=== PATIENT | male | born 1990 | race Two or more races ===

== ENCOUNTER 2020-05-09 09:40 | Outpatient (REF) | payer MEDICAID, SELFPAY | END 2020-05-09 09:41 | disposition home or self-care (01) | LOC: HO.LAB 09:40 | PROVIDERS: Visit Provider Internal Medicine | DX: Z20.828 Contact with and (suspected) exposure to other viral communicable diseases (principal) | CPT/HCPCS: C9803; U0003 ==

== ENCOUNTER 2022-01-26 13:12 | Outpatient (REF) | payer MEDICAID, SELFPAY ==
[2022-01-28 13:15] LABS: H Pylori Breath Test Negative (Negative)
== END 2022-01-26 13:13 | disposition home or self-care (01) ==
LOC: HO.LNP 13:12
PROVIDERS: PCP Family Medicine; Visit Provider Physician Assistant Surgical
DX: E66.01 Morbid (severe) obesity due to excess calories (principal)
CPT/HCPCS: 83013; 99202; 99211

== ENCOUNTER 2022-01-28 11:54 | Outpatient (REF) | payer MEDICAID, SELFPAY ==
--- NOTE | ~2022-01-28 | XR_ITS ---
EXAMINATION: XR CHEST CLINICAL INFORMATION: Morbid obesity. COMPARISON: None TECHNIQUE: 2 views of the chest were obtained. FINDINGS: No significant abnormality is noted involving the heart, lungs, mediastinum, bony thorax or soft tissues. XR/XR chest 2V IMPRESSION: Unremarkable examination.
--- NOTE | 2022-01-28 12:03 | ECG_ITS ---
Test Reason : e66.01 Blood Pressure : / mmHG Vent. Rate : 064 BPM Atrial Rate : 064 BPM P-R Int : 148 ms QRS Dur : 100 ms QT Int : 430 ms P-R-T Axes : 028 026 038 degrees QTc Int : 443 ms Normal sinus rhythm Normal ECG No previous ECGs available Referred By: Grupo James Electronically Signed By:USAMA MCMAHON MD
[2022-01-28 12:42] LABS: MANUAL DIFF FLAG NO
[2022-01-28 13:20] LABS: Estimated Average Glucose 105 mg/dL; Hemoglobin A1c % 5.3 %
[2022-01-28 13:22] LABS: Basophils Percent Auto 0.7 % (0-2); Eosinophils Absolute Auto 0.2 X10*3/uL (0.0-0.4); Eosinophils Percent Auto 3.2 % (0-4); Hematocrit 42.1 % (42.0-52.0); Hemoglobin 14.3 g/dl (14.0-18.0); Imm Gran Abs Auto 0.01 X10*3/uL (0.00-0.03); Imm Gran Pct Auto 0.2 % (0.0-0.4); Lymphocytes Absolute Auto 1.9 X10*3/uL (1.2-4.9); Lymphocytes Percent Auto 33.8 % (20-40); Mean Corpuscular Volume 88.3 fL (80.0-98.0); Mean Platelet Volume 11.1 fL (9.4-12.4); Monocytes Absolute Auto 0.6 X10*3/uL (0.1-1.2); Monocytes Percent Auto 11.2 % (2-11); Neutrophils Absolute Auto 2.8 x10*3/uL (2.0-8.3); Neutrophils Percent Auto 50.9 % (45-73); Platelet Count 192 X10*3/uL (160-400); Red Blood Count 4.77 X10*6/uL (4.60-5.80); Red Cell Distribution Width 12.2 % (11.0-16.0); White Blood Count 5.5 X10*3/uL (4.8-10.8)
[2022-01-28 13:41] LABS: Alanine Aminotransferase 50 U/L (0-40); Albumin Level 4.7 g/dL (3.5-5.0); Alkaline Phosphatase 63 U/L (39-117); Anion Gap 13 (12-20); Aspartate Amino Transferase 32 U/L (5-37); Bilirubin Total 0.7 mg/dL (0.0-1.0); Blood Urea Nitrogen 12 mg/dL (9-16); C Reactive Protein 0.53 mg/dL (< or = 0.50); Calcium 9.6 mg/dL (8.4-10.2); Carbon Dioxide 25 mmol/L (22-29); Chloride 108 mmol/L (96-108); Cholesterol 196 mg/dL; Estimated Glomerular Filt Rate > 60; Glucose Random 93 mg/dL (60-115); HDL Cholesterol 53 mg/dL; Iron 113 mcg/dL (45-160); LDL Cholesterol Calculated 127 mg/dl; Percent Iron Saturation 36 % (15-50); Potassium 4.3 mmol/L (3.3-5.1); Sodium 142 mmol/L (135-145); Total Iron Binding Capacity 312 mcg/dL (228-428); Total Protein 7.4 g/dL (6.5-8.0); Triglycerides 84 mg/dL; Unsaturated Iron Binding 199 ug/dL
[2022-01-28 13:54] LABS: ~HepC Num1 0.05 S/CO (0.00-0.79); ~Hepatitis C Antibody Nonreactive (Nonreactive)
[2022-01-28 13:56] LABS: HBsAGNum1 0.24 S/CO (0.00-0.99); HIV AB/AG Nonreactive (Nonreactive); Hepatitis B Surface Antigen Negative (Negative)
[2022-01-28 14:07] LABS: Ferritin 226 ng/mL (20-250); Insulin 16 uU/mL (2-29); TSH reflex Free T4 3.25 uIU/mL (0.32-4.0); Vitamin D 25-OH Total 19.5 ng/mL (>30)
[2022-01-28 14:44] LABS: Folate 16.5 ng/mL (> or = 4.0); Vitamin B12 350 pg/mL (200-900)
[2022-01-29 08:11] LABS: Syphilis Screen Nonreactive (Nonreactive)
[2022-02-01 17:32] LABS: Calcium (PTHI) 9.8 mg/dL (8.6-10.3); PTHI 53 pg/mL (16-77)
[2022-02-01 21:52] LABS: Zinc 87 mcg/dL (60-130)
[2022-02-02 17:02] LABS: TS Negative Control Passed; TS Panel A 0; TS Panel B 0; TS Positive Control Passed; TSpotTB Negative (Negative)
[2022-02-04 00:43] LABS: Vitamin A 44 mcg/dL (38-98)
[2022-02-04 06:22] LABS: Vitamin B1 13 nmol/L (8-30)
== END 2022-01-28 11:55 | disposition home or self-care (01) ==
LOC: HO.LAB 11:54
PROVIDERS: Absent Provider Family Medicine; PCP Family Medicine; Visit Provider Physician Assistant Surgical
DX: Z11.4 Encounter for screening for human immunodeficiency virus [HIV] (principal); Z11.3 Encounter for screening for infections with a predominantly sexual mode of transmission; E66.01 Morbid (severe) obesity due to excess calories
CPT/HCPCS: 36415; 71046; 80053; 80061; 82306; 82607; 82728; 82746; 83036; 83525; 83540; 83970; 84425; 84443; 84590; 84630; 85025; 86140; 86481; 86780; 86803; 87340; 87389; 93005

== ENCOUNTER → 2022-02-23 10:49 | Outpatient (BNVA) | payer MEDICAID, SELFPAY | PROVIDERS: PCP Family Medicine; Referring Provider Family Medicine; Visit Provider Physician Assistant Surgical | DX: E66.01 Morbid (severe) obesity due to excess calories (principal); Z71.3 Dietary counseling and surveillance; Z68.41 Body mass index [BMI] 40.0-44.9, adult | CPT/HCPCS: 99212 ==

== ENCOUNTER → 2022-03-11 13:27 | Outpatient (BNVA) | payer MEDICAID, SELFPAY | PROVIDERS: PCP Family Medicine; Visit Provider Dietitian, Registered | DX: E66.01 Morbid (severe) obesity due to excess calories (principal) | CPT/HCPCS: 97802 ==

== ENCOUNTER → 2022-11-09 10:04 | Outpatient (BNVA) | payer MEDICAID, SELFPAY | PROVIDERS: PCP Family Medicine; Referring Provider Family Medicine; Visit Provider Physician Assistant Surgical ==

== ENCOUNTER → 2022-11-25 09:47 | Outpatient (BNVA) | payer MEDICAID, SELFPAY | PROVIDERS: PCP Family Medicine; Referring Provider Family Medicine; Visit Provider Physician Assistant Surgical | DX: E66.01 Morbid (severe) obesity due to excess calories (principal); Z68.41 Body mass index [BMI] 40.0-44.9, adult | CPT/HCPCS: 99212 ==

== ENCOUNTER 2023-01-13 10:52 | Outpatient (REF) | payer MEDICAID, SELFPAY ==
[2023-01-13 11:10] LABS: MANUAL DIFF FLAG NO
[2023-01-13 12:27] LABS: Basophils Absolute Auto 0.1 X10*3/uL (0.0-0.2); Basophils Percent Auto 0.8 % (0-2); Eosinophils Absolute Auto 0.2 X10*3/uL (0.0-0.4); Eosinophils Percent Auto 2.7 % (0-4); Hematocrit 43.6 % (42.0-52.0); Hemoglobin 14.3 g/dl (14.0-18.0); Imm Gran Abs Auto 0.01 X10*3/uL (0.00-0.03); Imm Gran Pct Auto 0.1 % (0.0-0.4); Lymphocytes Absolute Auto 3.3 X10*3/uL (1.2-4.9); Lymphocytes Percent Auto 42.5 % (20-40); Mean Corpuscular HGB Conc 32.8 g/dl (31.0-36.0); Mean Corpuscular Hemoglobin 29.3 pg (27.0-33.0); Mean Corpuscular Volume 89.3 fL (80.0-98.0); Mean Platelet Volume 10.8 fL (9.4-12.4); Monocytes Absolute Auto 0.6 X10*3/uL (0.1-1.2); Monocytes Percent Auto 7.7 % (2-11); Neutrophils Absolute Auto 3.6 x10*3/uL (2.0-8.3); Neutrophils Percent Auto 46.2 % (45-73); Platelet Count 220 X10*3/uL (160-400); Red Blood Count 4.88 X10*6/uL (4.60-5.80); Red Cell Distribution Width 12.5 % (11.0-16.0); White Blood Count 7.8 X10*3/uL (4.8-10.8)
[2023-01-13 14:16] LABS: Estimated Average Glucose 100 mg/dL; Hemoglobin A1c % 5.1 %
[2023-01-13 14:25] LABS: Alanine Aminotransferase 34 U/L (0-40); Albumin Level 4.3 g/dL (3.5-5.0); Alkaline Phosphatase 60 U/L (39-117); Anion Gap 14 (12-20); Aspartate Amino Transferase 19 U/L (5-37); Bilirubin Total 0.6 mg/dL (0.0-1.0); Blood Urea Nitrogen 13 mg/dL (9-16); C Reactive Protein 0.61 mg/dL (< or = 0.50); Carbon Dioxide 26 mmol/L (22-29); Chloride 104 mmol/L (96-108); Cholesterol 194 mg/dL; Estimated Glomerular Filt Rate > 60; Ferritin 190 ng/mL (20-250); Glucose Random 91 mg/dL (60-115); HDL Cholesterol 47 mg/dL; Insulin 18 uU/mL (2-29); Iron 114 mcg/dL (45-160); LDL Cholesterol Calculated 124 mg/dl; Percent Iron Saturation 41 % (15-50); Potassium 4.1 mmol/L (3.3-5.1); Sodium 140 mmol/L (135-145); TSH reflex Free T4 2.67 uIU/mL (0.32-4.0); Total Iron Binding Capacity 277 mcg/dL (228-428); Total Protein 7.3 g/dL (6.5-8.0); Triglycerides 116 mg/dL; Unsaturated Iron Binding 163 ug/dL; Vitamin D 25-OH Total 21.9 ng/mL (>30)
[2023-01-13 15:46] LABS: Folate 11.5 ng/mL (> or = 4.0); Vitamin B12 339 pg/mL (200-900)
[2023-01-15 13:20] LABS: H Pylori Breath Test Negative (Negative)
[2023-01-17 14:58] LABS: Calcium (PTHI) 9.8 mg/dL (8.6-10.3); PTHI 45 pg/mL (16-77)
[2023-01-18 19:33] LABS: Zinc 80 mcg/dL (60-130)
[2023-01-20 03:33] LABS: Vitamin A 44 mcg/dL (38-98)
[2023-01-21 11:24] LABS: Vitamin B1 14 nmol/L (8-30)
== END 2023-01-13 10:53 | disposition home or self-care (01) ==
LOC: HO.LAB 10:52
PROVIDERS: PCP Family Medicine; Visit Provider Physician Assistant Surgical
DX: Z01.818 Encounter for other preprocedural examination (principal); Z11.2 Encounter for screening for other bacterial diseases; E66.01 Morbid (severe) obesity due to excess calories
CPT/HCPCS: 36415; 80053; 80061; 82306; 82607; 82728; 82746; 83013; 83036; 83525; 83540; 83970; 84425; 84443; 84590; 84630; 85025; 86140; 99211; 99214

== ENCOUNTER 2023-01-13 11:17 | Outpatient (AMB) | payer MEDICAID, SELFPAY ==
--- NOTE | 2023-01-13 11:23 | MHC.OFFVISWM ---
Intake VS Expanded 01/13/23 11:31 Height 5 ft 10 in Weight 280 lb 9.6 oz BMI 40.3 BP 138/73 Blood Pressure Location Rt brachial Blood Pressure Position Sitting Pulse 62 Pulse Source Pulse Oximeter Temp 97.3 F Temperature Source Temporal Artery Scan Pulse Oximetry 97 Oxygen Delivery Method Room Air Body Fat 105.2 Body Fat Percentage 37.5 Free Fat Mass 175.2 Muscle Mass 166.6 Visceral Mass 19.0 Water Mass 125.4 BMR 2,463 Intake Visit Reasons: (OV) SWL F/U & H.pylori Allergies No Known Allergies [No Known Allergies*] Allergy (Verified 01/13/23 11:27) Medication List - Last Reconciled 01/13/23 by DEMETRIUS Ladd No Known Home Meds HPI HPI Comments History of Present Illness Details The patient is a pleasant 32 year old male who returns to the clinic for pre-operative surgical weight loss management.?They were last seen in the office on 11/25/2022, recorded weight at that time was 281.6 pounds, with a BMI of 40.4.?Today's weight is 280.6 pounds and BMI is 40.2.?There has been a weight loss of 1 pounds since initiating the surgical weight loss program on 11/25/2022 with a total body weight loss of 0.3%. Pre op work up completed as follows: SWL classes:? 11/01 BH appts: none scheduled?? RD appts: none scheduled Labs: drawn today, pending H. pylori: done today CXR: 01/28/22, unremarkable exam EK01/28/22, NSR ABD U/S: next month UGI: next month The patient reports that he stopped the meal plan when he developed tendonitis in his leg, and had difficulty with exercise as well. Got frustrated. Does a lot of eating related to anxiety. Works in evenings, wants something to eat when he gets home. Sometimes does not sleep until 3-4am but tries to get to bed by 2am. Current meal plan includes: 2 Pure Protein shakes (1 scoop in 8oz 1% milk) at 11am-1pm, and 8pm-10pm 1 FitCrunch protein bar at 2pm-4pm Dinner at 5:30pm- 10 forks protein, 10 forks veg/salad PFSH Surgical History Hx of cholecystectomy Family History Mother Schizophrenia Father No problems noted. Son No problems noted. Son No problems noted. Daughter No problems noted. Social History Alcohol intake: never Patient Tobacco Use Status: Never used Tobacco Assessment & Plan Assessment & Plan (1) Morbid obesity: Code(s): E66.01 - Morbid (severe) obesity due to excess calories Plan Pt needs to be scheduled for RD and BH consults. Labs pending, H pylori pending, US/UGI scheduled for next month. Discussed the importance of adequate sleep. Provided exercise handout and highlighted Sit and Be Fit & Eunice Garcia videos as options for exercise while he is recovering from tendonitis. New meal plan: 2 Pure Protein shakes (1 scoop each, change milk to 8oz unsweetened almond milk) at 11am-1pm, and 8pm-10pm 2 FitCrunch protein bars at 2pm-4pm and 12-2am Dinner at 5:30pm- 10 forks protein, 10 forks veg/salad RTC 3 weeks. Patient is morbidly obese and is not considered stable at this time. I spent a total of 30 minutes reviewing/updating records, examining the patient and counseling the patient on weight management as detailed above. Coding Level of Care Code Est Pt Level 4 (16146) Diagnoses Morbid obesity E66.01
[2023-01-13 11:31] VITALS: BP 138/73; PULSE 62; TEMP 36.3; O2SAT 97; BMI 40.3
== END 2023-01-13 11:48 | disposition home or self-care (01) ==
PROVIDERS: PCP Family Medicine; Visit Provider Physician Assistant Surgical
DX: E66.01 Morbid (severe) obesity due to excess calories (principal)
CPT/HCPCS: 99214

== ENCOUNTER 2023-02-02 11:00 | Outpatient (AMB) | payer OTHER, SELFPAY ==
--- NOTE | 2023-02-02 11:15 | MHC.WMTHER ---
Intake Intake Visit Reasons: VIDEO BH Intake Allergies No Known Allergies [No Known Allergies*] Allergy (Verified 01/13/23 11:27) PFSH Surgical History Hx of cholecystectomy Family History Mother Schizophrenia Father No problems noted. Son No problems noted. Son No problems noted. Daughter No problems noted. Social History Alcohol intake: never Patient Tobacco Use Status: Never used Tobacco Behavioral Health Assessment Weight Management Therapy Therapy Notes Details PT is a 32 year old, , Romansh-speaking male who presents for initial behavioral health assessment as part of surgical weight-loss program. PT reports to be interested in bariatric surgery however, is unsure about what's his healthy weight. He also did not have a clear understanding of importance of follow meal plan and have changes in lifestyle prior to surgery. He disclosed struggles with stress-eating, and challenges with anxiety and depression however he denies ever been in formal mental health treatment and or past hospitalization/crisis for behavioral health. PT denies any safety concerns around SI and/or self-other harm. PHQ-9 scores showed active symptoms/concerns with depression. PT did not complete BES, wchih we will have to complete next appointment. At this time patient is not cleared from the behavioral health standpoint. We will meet again in 3-4 weeks. Presenting Concerns Referral Source WMP Provider, Pt sees Sangeetha. Reason for referral Completion of behavioral health assessment as part of process for weight-loss surgery. Precipitating Event Obesity. Living Situation Current Living Situation Rent At risk of losing current housing? No Satisfied with current living situation? Yes Comments PT lives with partner, 2 year old daughter and 3 step-shilcren. Food/Weight/Diet Expectations of change Pt states he wants to be at least 215Lbs. However, he's unsure about his healthy weight. He wants to get surgery to feel obligated to follow a meal plan and/or not to eat unhealthy foods. As well of to be forced to be healthy. History/Relationship with food PT reports he never had a schedule for meals, he tends to eat a lot of candy/sweets, he tends to skip breakfast/lunch and will have 1 meal at day but finds himself binging and snacking. Example of meals (what he had yesterday) Breakfast: Skip Lunch: 10pm/ not a formal lunch, might eat bread with tuna salad. Dinner: Skip/ yesterday had white rice/ beans/pork Gets home at 12am- might snack on sweets. Fall asleep 4am-wakes up 11am. Start working at 3pm. [place] to eat vegetables as an adult. History/Relationship with weight Pt reports he has always been overweight. However, it got out of control around age 25. History/Relationship with dieting Was at [facility] last year in 2021. [id number] he was very active with exercise, and was able to loss 60Lbs. - was 215Lbs. Binge Eating Do you frequently eat large amounts of food in short periods of time, not feeling physically hungry? No Do you feel out of control when you eat a large amount of food in a short period of time? No Do you eat large amounts of food rapidly and typically alone? No Night Eating Do you wake up at least once during the night to eat? No If you wake up in the night, do you find that it is necessary to eat something in order to fall back asleep? No Do you have little or no appetite in the morning and feel very hungry in the evening, often overeating between dinner and when you go to bed? 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 They live together and shares 1 daughter. Parents are alive, Pt has 4 siblings. Pt reports good family relationships. Parental/Familial log scaler obligations 2 older children from a previous relationship (8 and 9 years old). 1 year old daughter with current partner. 3 stepchildren. Developmental history and status None reported. Social support Partner. Community support None. Tenriism/Spirituality PT is Nondenominational, attends [employer] weekly. Cultural/Ethnic information PT was born in [place]. Moved to [place] in 2019. Legal Involvement and History Current or historical involvement with the legal system? Incarcelated in [id number] Education Highest grade completed 12th grade. Did 1 semester of college. Preferred learning style Written and Visual Currently enrolled in educational program? No Interested in further educational program? No Educational Interests/Skills None identified. 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 No Meaningful activities Reading the bible, family activities, watching tv. Financial Situation Describe current financial situation Often struggles with finance Financial assistance? None Service Service? No Mental Health and Addiction Treatment Current/Past substance abuse? 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 Current/Past addictive behavior concerns? No Psychiatric history -Never been in therapy or hospitalized for mental health. -Pt reports dealing with moments of depression and anxiety, and tends to eat a lot when stressed. -Has experienced traumatic events. Medical and Physical Health Summary Additional Medical History not covered in history None reported. Sexual History concerns None reported. Physical exam in the last year? Yes Pain Screening Current pain? Yes Pain in the last few months? Yes Comments Back pain. Medications Is the patient compliant with medications? No Does the patient have Acevedo Guardian in place? Not applicable Does the patient use complimentary health approaches? No Trauma/Abuse History History of trauma? Yes Other Past (Time in [facility], childhood experiences. ) Questionnaires PHQ-9 Over the last 2 weeks, how often have you been bothered by any of the following problems? 1. Little interest or pleasure in doing things: more than half the days 2. Feeling down, depressed, or hopeless: more than half the days 3. Trouble falling or staying asleep, or sleeping too much: several days 4. Feeling tired or having little energy: nearly every day 5. Poor appetite or overeating: more than half the days 6. Feeling bad about yourself - or that you are a failure or have let yourself or your family down: nearly every day 7. Trouble concentrating on things, such as reading the newspaper or watching television: nearly every day 8. Moving or speaking so slowly that other people could have noticed. Or the opposite - being so fidgety or restless that you have been moving around a lot more than usual: several days 9. Thoughts that you would be better off or of hurting yourself in some way: not at all Total score: 17 Depression Screening Interpretation: Positive [id number] - PHQ-9 Billing: Yes Source: Developed by Drs. Liu Morocho, Paloma Bradley, Shashi Major and colleagues, with an educational jona from [employer]. Assessment & Plan Assessment & Plan (1) Adjustment disorder: Code(s): F43.20 - Adjustment disorder, unspecified Qualifiers: Adjustment disorder type: with mixed anxiety and depressed mood Qualified Code(s): F43.23 - Adjustment disorder with mixed anxiety and depressed mood Plan: -PT will need support with emotional eating and managing symptoms of depression and anxiety. It has been recommended to start counseling and this provider will help with a referral. -We will also start working on habit building as PT is not following meal plan, healthy life choices and with emotional eating challenges by facilitating coping strategies for that. - Initial goal is for patient to set alarm for meals and follow suggested meal schedule/meal options. Advised to focus on small goals since surgery and achieve healthy weight are the big goals but initially we need to focus on small/clear objectives to reach that. Plan PT is not cleared. Telehealth Telehealth Location of provider rendering services: other (Home office. [place], [place].) Location of patient: address on file Patient Identification confirmed using: Name, : Yes Telehealth method: video Patient verbally consented to treatment: Yes Patient verbally consented to billing insurance company: Yes Patient informed of any privacy concerns related to visit: Yes Minutes spent on Phone/Video with Pt.: 60 Coding Level of Care Code New Pt Tele Psy Diag Lara ([id number]) Patient Type New Diagnoses Adjustment disorder F43.23 Adjustment disorder type: with mixed anxiety and depressed mood Time Spent (min) 70 Comment 11:15am-12:25pm
== END 2023-02-02 12:26 | disposition home or self-care (01) ==
LOC: HO.HBST 11:29
PROVIDERS: PCP Family Medicine; Visit Provider Counselor Mental Health
DX: F43.23 Adjustment disorder with mixed anxiety and depressed mood (principal)
CPT/HCPCS: 90791

== ENCOUNTER → 2023-02-02 11:00 | Outpatient (BNVA) | payer MEDICAID, SELFPAY | PROVIDERS: PCP Family Medicine; Visit Provider Counselor Mental Health ==

== ENCOUNTER 2024-05-25 19:06 | Emergency (ER) | payer MEDICAID, SELFPAY ==
--- NOTE | ~2024-05-25 | XR_ITS ---
EXAMINATION: XR CHEST CLINICAL INFORMATION: CP COMPARISON: Chest x-ray 01/28/2022 TECHNIQUE: 2 views of the chest were obtained. FINDINGS: No significant abnormality is noted involving the heart, lungs, mediastinum, bony thorax or soft tissues. XR/XR chest 2V IMPRESSION: Unremarkable examination. Electronically signed by: Jay Colvin MD 05/25/2024 08:46 PM [facility]
--- NOTE | 2024-05-25 19:07 | ECG_ITS ---
Test Reason : CP Blood Pressure : / mmHG Vent. Rate : 094 BPM Atrial Rate : 094 BPM P-R Int : 150 ms QRS Dur : 086 ms QT Int : 342 ms P-R-T Axes : 047 043 039 degrees QTc Int : 427 ms Normal sinus rhythm Normal ECG When compared with ECG of 28-JAN-2022 12:00, No significant change was found Referred By: Christina Lyon Electronically Signed By:DONTRELL KERN
[2024-05-25 19:26] VITALS: BP 144/86; PULSE 88; RESP 18; TEMP 36.6; O2SAT 96; BMI 40.4
--- NOTE | 2024-05-25 19:28 | ED.GENADULT ---
HPI - General Adult General Chief complaint: Chest Pain Stated complaint: Chest pain/ cough Time Seen by Provider: 05/25/24 23:18 Source: patient Mode of arrival: ambulatory Limitations: no limitations History of Present Illness ED Provider: HPI narrative: Patient has been having dry cough for last 3 weeks getting worse now having chest soreness been increases on deep breath or cough no fever no chills has mucopurulent phlegm Related Data Previous Rx's ?Medication ?Instructions ?Recorded cholecalciferol (vitamin D3) 50 50 mcg PO DAILY #90 caps 01/25/23 mcg (2,000 unit) capsule azithromycin 250 mg tablet See Rx Instructions PO .COMPLEX #6 05/25/24 (Zithromax Z-Diomedes) tabs benzonatate 200 mg capsule 200 mg PO TID PRN cough #30 caps 05/25/24 cefuroxime axetil 500 mg tablet 500 mg PO BID 7 days #14 tabs 05/25/24 Allergies Allergy/AdvReac Type Severity Reaction Status Date / Time No Known Allergies Allergy Verified 05/25/24 19:32 [No Known Allergies*] Review of Systems Review of Systems: Yes all other systems are reviewed and are negative [facility] Past Medical History Surgical History Hx of cholecystectomy Family History Family History Mother Schizophrenia Father No problems noted. Son No problems noted. Son No problems noted. Daughter No problems noted. Social History Social History Alcohol intake: never Patient Tobacco Use Status: Never used Tobacco Advance Directives: No Advance Directives Information Provided: Yes Physical Exam ED Vital Signs: Vital Signs - 24 hr 05/25/24 19:26 05/26/24 00:02 05/26/24 00:07 Temperature 97.9 F 97.8 F 97.8 F Pulse Rate 88 85 85 Respiratory Rate 18 17 17 Blood Pressure 144/86 H 134/85 134/85 Pulse Oximetry 96 96 96 Oxygen Delivery Method Room Air Room Air Room Air BMI result Body Mass Index 40.4 Appearance: Alert. Oriented X3. No acute distress. ENT: Pharynx normal. Oral Mucosa moist Neck: Normal inspection. Neck supple. CVS: Normal heart rate and rhythm. Pulses normal. Respiratory: No respiratory distress. Equal air entry bilateral, no wheezing/rales/rhonchi frequent cough chest wall tenderness Skin: Skin warm and dry. Normal skin color. Normal skin turgor. Extremities: No lower extremity edema. Neuro: Oriented X 3. Course Course Course Narrative: This is an RME: Additional HPI, ROS, PE not included below will be deferred to primary provider. RME assessment and note performed by: Christina Lyon PA-C This is a [id number]-male, with no known medical hx, who presents to the ER with complaints of cough, subjective fevers, chest pain x 3 weeks. Plan: Labs, CXR, EKG, viral swabs Medications Administered Discontinued Medications Generic Name Dose Route Start Last Admin Trade Name Freq PRN Reason Stop Dose Admin Cefuroxime Axetil 500 mg 05/25/24 23:51 05/26/24 00:03 Cefuroxime Axetil 500 Mg Tablet PO 05/25/24 23:52 500 mg ONCE ONE Administration Guaifenesin/Codeine Phosphate 10 ml 05/25/24 23:52 05/26/24 00:03 Guaifen/Codeine Sf 200/20/10ml 10 Ml Liquid PO 05/25/24 23:53 10 ml ONCE ONE Administration Medical Decision Making Medical Decision Making [facility] Narrative: Patient has acute bronchitis causing the chest pain chest x-ray negative will discharge him on antibiotics Lab Data [facility] Lab Attestation statement: I reviewed the patient's lab results. 05/25/24 19:46 05/25/24 19:46 Labs: Lab Results 05/25/24 05/25/24 Range/Units 19:46 22:56 WBC 10.0 (4.8-10.8) X10*3/uL RBC 4.62 (4.60-5.80) X10*6/uL Hgb 14.8 (14.0-18.0) g/dl Hct 42.4 (42.0-52.0) % MCV 91.8 (80.0-98.0) fL MCH 32.0 (27.0-33.0) pg MCHC 34.9 (31.0-36.0) g/dl RDW 13.0 (11.0-16.0) % Plt Count 314 D (160-400) X10*3/uL MPV 10.5 (9.4-12.4) fL Immature Gran % (Auto) 0.4 (0.0-0.4) % Neut % (Auto) 57.0 (45-73) % Lymph % (Auto) 31.1 (20-40) % [place] % (Auto) 7.7 (2-11) % Eos % (Auto) 3.2 (0-4) % Baso % (Auto) 0.6 (0-2) % Lymph # (Auto) 3.1 (1.2-4.9) X10*3/uL [place] # (Auto) 0.8 (0.1-1.2) X10*3/uL Eos # (Auto) 0.3 (0.0-0.4) X10*3/uL Baso # (Auto) 0.1 (0.0-0.2) X10*3/uL Abs Immat Gran (auto) 0.04 H (0.00-0.03) X10*3/uL Absolute Neuts (auto) 5.7 (2.0-8.3) x10*3/uL Absolute Nucleated RBC 0.000 (0.0-0.012) X10*3/uL Nucleated RBC % (auto) 0.0 (0.0-0.2) /100WBC PT 12.0 (10.9-12.4) SEC INR 1.0 (0.9-1.1) Sodium 139 (135-145) mmol/L Potassium 4.4 (3.3-5.1) mmol/L Chloride 104 (96-108) mmol/L Carbon Dioxide 26 (22-29) mmol/L Anion Gap 13 (12-20) BUN 13 (9-16) mg/dL Creatinine 1.17 (0.5-1.4) mg/dL Estim Creat Clear Calc 124.2 Estimated GFR > 60 Random Glucose 110 (60-115) mg/dL Calcium 9.9 (8.4-10.2) mg/dL Total Bilirubin 0.5 (0.0-1.0) mg/dL Direct Bilirubin 0.2 (0.0-0.5) mg/dL AST 41 H (5-37) U/L ALT 51 H (0-40) U/L Alkaline Phosphatase 93 (39-117) U/L Troponin I High Sens < 2.7 < 2.7 (<3.5-35.0) ng/L Total Protein 7.8 (6.5-8.0) g/dL Albumin 4.5 (3.5-5.0) g/dL Influenza Type A (PCR) NEGATIVE (Negative) Influenza Type B (PCR) NEGATIVE (Negative) RSV RNA Qual (PCR) NEGATIVE (Negative) SARS-CoV-2 RNA (RT-PCR) NEGATIVE (Negative) Independent Interpretation I performed an independent interpretation of an: EKG Interpretation: Normal sinus rhythm heart rate 94 beats per minute normal interval normal axis impression normal EKG Discharge Plan Discharge Clinical Impression: Acute bronchitis Patient Disposition: Home, Self-Care Instructions: Acute Bronchitis (ED) Additional Instructions: Take antibiotics and cough drops as prescribed Follow with PCP if not better Prescriptions: New benzonatate 200 mg capsule 200 mg PO TID PRN (Reason: cough) Qty: 30 0RF cefuroxime axetil 500 mg tablet 500 mg PO BID 7 Days Qty: 14 0RF azithromycin [Zithromax Z-Diomedes] 250 mg tablet See Rx Instructions .ROUTE .COMPLEX Qty: 6 0RF Rx Instructions: For 250 mg dose pack: take 500 mg today (day 1), then 250 mg for 4 days (days 2-5) No Action cholecalciferol (vitamin D3) 50 mcg (2,000 unit) capsule 50 mcg PO DAILY Qty: 90 3RF Interventions: ED Discharge Assessment Last Done: 05/26/24 00:07 Discharge Date/Time: 05/26/24 00:07 Print Language: Upper Sorbian
[2024-05-25 20:01] LABS: MANUAL DIFF FLAG NO
[2024-05-25 20:03] LABS: Basophils Absolute Auto 0.1 X10*3/uL (0.0-0.2); Basophils Percent Auto 0.6 % (0-2); Eosinophils Absolute Auto 0.3 X10*3/uL (0.0-0.4); Eosinophils Percent Auto 3.2 % (0-4); Hematocrit 42.4 % (42.0-52.0); Hemoglobin 14.8 g/dl (14.0-18.0); Imm Gran Abs Auto 0.04 X10*3/uL (0.00-0.03); Imm Gran Pct Auto 0.4 % (0.0-0.4); Lymphocytes Absolute Auto 3.1 X10*3/uL (1.2-4.9); Lymphocytes Percent Auto 31.1 % (20-40); Mean Corpuscular HGB Conc 34.9 g/dl (31.0-36.0); Mean Corpuscular Volume 91.8 fL (80.0-98.0); Mean Platelet Volume 10.5 fL (9.4-12.4); Monocytes Absolute Auto 0.8 X10*3/uL (0.1-1.2); Monocytes Percent Auto 7.7 % (2-11); Neutrophils Absolute Auto 5.7 x10*3/uL (2.0-8.3); Platelet Count 314 X10*3/uL (160-400); Red Blood Count 4.62 X10*6/uL (4.60-5.80)
[2024-05-25 20:29] LABS: Alanine Aminotransferase 51 U/L (0-40); Albumin Level 4.5 g/dL (3.5-5.0); Alkaline Phosphatase 93 U/L (39-117); Anion Gap 13 (12-20); Aspartate Amino Transferase 41 U/L (5-37); Bilirubin Direct 0.2 mg/dL (0.0-0.5); Bilirubin Total 0.5 mg/dL (0.0-1.0); Blood Urea Nitrogen 13 mg/dL (9-16); Calcium 9.9 mg/dL (8.4-10.2); Carbon Dioxide 26 mmol/L (22-29); Chloride 104 mmol/L (96-108); Creatinine Clr Calc Pharmacy 124.2; Estimated Glomerular Filt Rate > 60; Glucose Random 110 mg/dL (60-115); Potassium 4.4 mmol/L (3.3-5.1); Sodium 139 mmol/L (135-145); Total Protein 7.8 g/dL (6.5-8.0)
[2024-05-25 20:38] LABS: Troponin-I High Sensitivity < 2.7 ng/L (<3.5-35.0)
[2024-05-25 20:46] LABS: Influenza A PCR NEGATIVE (Negative); Influenza B PCR NEGATIVE (Negative); Resp Syncy Virus RNA Qual PCR NEGATIVE (Negative); SARS COV2 PCR INHOUSE NEGATIVE (Negative)
[2024-05-25 23:24] LABS: Troponin-I High Sensitivity < 2.7 ng/L (<3.5-35.0)
[2024-05-26 00:02] VITALS: BP 134/85; PULSE 85; RESP 17; TEMP 36.6; O2SAT 96
[2024-05-26] MEDS: guaiFEN/Codeine SF 200/20/10ML 10 ML LIQUID PO (00:03)
[2024-05-26] MEDS: cefuroxime axetiL 500 MG TABLET PO (00:03)
[2024-05-26 00:07] VITALS: BP 134/85; PULSE 85; RESP 17; TEMP 36.6; O2SAT 96
== END 2024-05-26 00:07 | disposition home or self-care (01) ==
LOC: HO.ED 23:59
PROVIDERS: Physician Assistant Medical; Emergency Provider Internal Medicine
DX: J40 Bronchitis, not specified as acute or chronic (principal); R07.89 Other chest pain; Z03.818 Encounter for observation for suspected exposure to other biological agents ruled out; Z79.899 Other long term (current) drug therapy
CPT/HCPCS: 0241U; 36415; 71046; 80048; 80076; 84484; 85025; 85610; 93005; 99283

== ENCOUNTER → 2024-05-25 19:07 | Outpatient (BNV) | payer MEDICAID, SELFPAY | PROVIDERS: Emergency Provider Internal Medicine; Visit Provider Internal Medicine | DX: R07.9 Chest pain, unspecified (principal) | CPT/HCPCS: 93010 ==

== ENCOUNTER 2024-07-04 06:17 | Emergency (ER) | payer MEDICAID, SELFPAY ==
--- NOTE | ~2024-07-04 | CT_ITS ---
EXAMINATION: CT ABDOMEN AND PELVIS WITHOUT CONTRAST CLINICAL INFORMATION: Epigastric pain. COMPARISON: None available. TECHNIQUE: Multidetector volumetric imaging was performed from the superior aspect of the liver through the pubic symphysis. Sagittal and coronal reformatted images were obtained on the technologist's workstation. This CT examination was performed using dose optimization techniques as appropriate, variously including the following: *Automated exposure control *Adjustment of mA and/or kV according to patient size (this includes techniques or standardized protocols for targeted exams where dose is matched to indication/reason for exam; i.e. extremities or head) *Use of iterative reconstruction technique. Total dose: 958 mGy centimeters FINDINGS: Inadequate evaluation of the intra-abdominal organs and vascular structures due to lack of IV contrast. LUNG BASES: Pulmonary groundglass, lower lung lobes. LIVER, GALLBLADDER, AND BILIARY TREE: Liver measures 20 cm. Decreased attenuation of the parenchyma. No intrahepatic biliary ductal dilatation. Status post cholecystectomy likely laparoscopic. No extrahepatic biliary ductal dilatation. PANCREAS: No peripancreatic fluid collections. No main pancreatic ductal dilatation. SPLEEN: 11 cm. ADRENAL GLANDS: No nodular lesions. KIDNEYS AND URETERS: Atrophic right kidney. No hydronephrosis or nephrolithiasis, left kidney. No hydronephrosis in the atrophic right kidney. BLADDER: Fluid-filled nearly collapsed with questionable wall thickening. GASTROINTESTINAL TRACT: Appendix is normal. Collapsed appearance of the left hemicolon. No intestinal obstruction pattern. No pneumatosis intestinalis. No pneumoperitoneum. No ascites. ABDOMINAL WALL: Diastases abdominal rectus muscles with a small tiny fat-containing umbilical hernia. Fat-containing left inguinal hernia. LYMPH NODES: No specific prominent less than 1 cm lymph nodes, mesenteric and retroperitoneum. VASCULAR: No aneurysm, abdominal aorta. PELVIC VISCERA: The seminal vesicles demonstrated normal size. Prostate gland is either absent or small. OSSEOUS STRUCTURES: Spondylosis L4-5 and L5-S1. Grade 1 retrolisthesis L4-5 on a degenerative basis resulting in central spinal canal and bilateral neuroforamina stenosis. Bilateral neuroforamina stenosis at L5-S1. No acute fracture. No gross lytic or blastic lesions.. CT/CT abdomen pelvis wo IV con IMPRESSION: Hepatomegaly and steatosis. Atrophic right kidney. No nephrolithiasis. Small tiny fat-containing umbilical hernia and fat-containing left inguinal hernia. Spondylosis L4-5 resulting in grade 1 retrolisthesis. Fleischner guidelines were followed. Electronically signed by: Milton Gaytan MD 07/04/2024 11:09 AM [facility]ENSON
[2024-07-04 06:19] VITALS: BP 153/82; PULSE 100; RESP 20; TEMP 36.6; O2SAT 96; BMI 41.2
--- NOTE | 2024-07-04 06:36 | PC.NURSE ---
Pt a&ox4, no signs of distress. Pt reports 9/10 abd pain with onset of 0100 with associated n/v/d Plan of care ongoing.
--- NOTE | 2024-07-04 06:55 | ED.NAVMDI ---
HPI - Nausea/Vomiting/Diarrhea General Chief complaint: Nausea/Vomiting/Diarrhea Stated complaint: n/v Time Seen by Provider: 07/04/24 06:39 Source: patient and newspaper inserter (yakut) Mode of arrival: ambulatory Limitations: language barrier (yakut) History of Present Illness ED Provider: XENIA SO PA-C HPI Narrative: 34 year old male presents to the ED today for evaluation of epigastric abdominal pain, N/V/D since 0100 this morning. Pain is localized to his epigastric region, no radiation. Describes it as a cramping sensation. Admits to multiple episodes of vomiting and diarrhea. No blood in stool/ vomit. He last ate around 1500 yesterday. This meal consisted of crazy loaded fries with chicken from a food truck. He is unsure if anyone else has similar symptoms. No hx of similar. Denies fever, chills, sore throat, flank pain, dysuria, hematuria. Surgical history - cholecystectomy (8 years ago). Related Data Previous Rx's ?Medication ?Instructions ?Recorded cholecalciferol (vitamin D3) 50 50 mcg PO DAILY #90 caps 01/25/23 mcg (2,000 unit) capsule azithromycin 250 mg tablet See Rx Instructions PO .COMPLEX #6 05/25/24 (Zithromax Z-Diomedes) tabs benzonatate 200 mg capsule 200 mg PO TID PRN cough #30 caps 05/25/24 cefuroxime axetil 500 mg tablet 500 mg PO BID 7 days #14 tabs 05/25/24 dicyclomine 10 mg capsule 10 mg PO BID PRN abdominal pain 07/04/24 #10 caps ondansetron 4 mg disintegrating 4 mg PO DAILY PRN nausea and 07/04/24 tablet vomiting 5 days #14 tabs Allergies Allergy/AdvReac Type Severity Reaction Status Date / Time No Known Allergies Allergy Verified 07/04/24 06:25 [No Known Allergies*] Review of Systems Review of Systems: Constitutional: No fever, chills, fatigue, night sweats, weight changes ENT/Mouth: No ear pain, hearing loss, nasal congestion, sinus pain, rhinorrhea, sore throat Eyes: No eye pain, swelling, redness, vision changes, discharge Cardio: No chest pain, palpitations, LUCAS, orthopnea, peripheral edema Pulm: No SOB, cough, sputum, wheezing, dyspnea, hemoptysis GI: Nohematemesis, constipation, hematochezia, melena, +abdominal pain, +nausea, +vomiting, +diarrhea : No irregular bleeding, dysuria, frequency, urgency, hesitancy, hematuria, flank pain, urinary flow changes, urinary incontinence or retention MSK: No back pain, neck pain, joint pain, myalgias Skin: No lesions, rashes Neuro: No weakness, numbness, paresthesias, LOC, dizziness, headache Psych: No anxiety/panic, depression, SI/HI, AH/VH All other systems reviewed and are negative. [facility] Past Medical History Attestation statement: The following information was validated with the patient. Source: old records reviewed and nursing notes reviewed Surgical History Hx of cholecystectomy Family History Family History Mother Schizophrenia Father No problems noted. Son No problems noted. Son No problems noted. Daughter No problems noted. Social History Social History Alcohol intake: never Patient Tobacco Use Status: Never used Tobacco Physical Exam Vital Signs: Vital Signs: Last Vital Signs Temp 99.3 F 07/04/24 12:21 Pulse 91 07/04/24 12:21 Resp 17 07/04/24 12:21 BP 129/84 07/04/24 12:21 Pulse Ox 96 07/04/24 12:21 O2 Del Method Room Air 07/04/24 12:21 BMI result Body Mass Index 41.2 Vital signs stable, afebrile General: Well appearing, in no acute distress. Skin: Warm, dry, intact. No rashes or lesions. Head: Normocephalic, atraumatic. EENT: Hearing is intact b/l. Conjunctiva clear. PERRLA. EOM intact. Moist mucous membranes.? Neck: Supple without LAD Cardiac: Chest wall symmetric. RRR Lungs: Normal respiratory effort without accessory muscle use. CTA bilaterally Abdomen: Obese, soft, nondistended, tender to palpation of epigastric region on deep palpation, no rebound tenderness or guarding. Normoactive bowel sounds x4. No CVAT bilaterally. Back: No midline spinous or paraspinal tenderness. No step off deformity. Ext: Upper and lower extremities atraumatic, without tenderness, deformity, swelling or erythema. Full ROM throughout Neuro: AOx3. Normal speech. Ambulating with steady gait. Psych: Appropriate mood and affect. Responds appropriately to questions. Course Course Course Narrative: - CBC without leukocytosis. Left shift. No anemia. H&H stable. Chemistry without acute electrolyte abnormality requiring intervention. Random glucose 138. No ERIKA. Liver function WNL. Lipase WNL. He tested negative for COVID, flu, RSV, strep throat. urine negative for infection. CT abdomen/pelvis pending. He has received Toradol and Zofran with improvement. - CT A/P showing normal pancreas. incidental findings of hepatic steatosis. no evidence of renal stones. likely gastroenteritis. educated on symptomatic treatment. tolerating crackers and gingerale in ED. n ofurther episodes of vomiting. Patient has remained stable throughout ED visit today. Discussed worrisome signs and symptoms and when to return to the ED. All questions answered at this time. Patient is agreeable with disposition and stable for discharge. Medications Administered Discontinued Medications Generic Name Dose Route Start Last Admin Trade Name Freq PRN Reason Stop Dose Admin Ketorolac Tromethamine 30 mg 07/04/24 07:41 07/04/24 08:52 Ketorolac Tromethamine 30 Mg/Ml Vial IM 07/04/24 07:42 30 mg ONCE ONE Administration Ondansetron HCl 4 mg 07/04/24 07:41 07/04/24 08:52 Ondansetron Odt 4 Mg Tab.Rapdis TRANSLINGU 07/04/24 07:42 4 mg ONCE ONE Administration Medical Decision Making Medical Decision Making [facility] Narrative: 34 year old male presents to the ED today for evaluation of epigastric abdominal pain, N/V/D since 0100 this morning. Patient was hypertensive, vitals are otherwise WNL. Afebrile. He is nontoxic-appearing and in no acute distress. Abdomen is obese, nondistended, tender to palpation of the epigastric region with deep palpation. No rebound tenderness or guarding. Negative Laughlin's sign. Negative McBurney point tenderness. Negative Rovsing sign. No CVAT bilaterally. Differential diagnosis includes viral syndrome, gastroenteritis. Abdominal exam without peritoneal signs. No evidence of acute abdomen at this time. Well appearing. Moderate suspicion for acute hepatobiliary disease (including acute cholecystitis- s/p cholecystectomy). Less likely to represent acute pancreatitis, PUD (including perforation), acute infectious processes (pneumonia, hepatitis, pyelonephritis), atypical appendicitis, vascular catastrophe, bowel obstruction or viscus perforation. Presentation not consistent with other acute, emergent causes of abdominal pain at this time. Plan: labs, UA, pain control, RUQ US, serial reassessment Differential Diagnosis Differential Diagnoses: The differential diagnosis associated with the presentation includes as above. Admission/Observation Not indicated Lab Data MDM Lab Attestation statement: I reviewed the patient's lab results. As above 07/04/24 06:45 07/04/24 06:45 Labs: Lab Results 07/04/24 07/04/24 Range/Units 06:45 08:30 WBC 10.2 (4.8-10.8) X10*3/uL RBC 5.15 (4.60-5.80) X10*6/uL Hgb 15.7 (14.0-18.0) g/dl Hct 44.7 (42.0-52.0) % MCV 86.8 (80.0-98.0) fL MCH 30.5 (27.0-33.0) pg MCHC 35.1 (31.0-36.0) g/dl RDW 12.1 (11.0-16.0) % Plt Count 207 D (160-400) X10*3/uL MPV 10.4 (9.4-12.4) fL Immature Gran % (Auto) 0.5 H (0.0-0.4) % Neut % (Auto) 89.8 H (45-73) % Lymph % (Auto) 4.8 L (20-40) % [place] % (Auto) 2.7 (2-11) % Eos % (Auto) 1.9 (0-4) % Baso % (Auto) 0.3 (0-2) % Lymph # (Auto) 0.5 L (1.2-4.9) X10*3/uL [place] # (Auto) 0.3 (0.1-1.2) X10*3/uL Eos # (Auto) 0.2 (0.0-0.4) X10*3/uL Baso # (Auto) 0.0 (0.0-0.2) X10*3/uL Abs Immat Gran (auto) 0.05 H (0.00-0.03) X10*3/uL Absolute Neuts (auto) 9.2 H (2.0-8.3) x10*3/uL Absolute Nucleated RBC 0.000 (0.0-0.012) X10*3/uL Nucleated RBC % (auto) 0.0 (0.0-0.2) /100WBC Sodium 140 (135-145) mmol/L Potassium 4.2 (3.3-5.1) mmol/L Chloride 107 (96-108) mmol/L Carbon Dioxide 21 L (22-29) mmol/L Anion Gap 16 (12-20) BUN 17 H (9-16) mg/dL Creatinine 1.10 (0.5-1.4) mg/dL Estim Creat Clear Calc 137.4 Estimated GFR > 60 Random Glucose 138 H (60-115) mg/dL Calcium 9.4 (8.4-10.2) mg/dL Total Bilirubin 0.6 (0.0-1.0) mg/dL AST 31 (5-37) U/L ALT 58 H (0-40) U/L Alkaline Phosphatase 84 (39-117) U/L Total Protein 7.8 (6.5-8.0) g/dL Albumin 4.4 (3.5-5.0) g/dL Lipase 15 (8-78) U/L Influenza Type A (PCR) NEGATIVE (Negative) Influenza Type B (PCR) NEGATIVE (Negative) RSV RNA Qual (PCR) NEGATIVE (Negative) SARS-CoV-2 RNA (RT-PCR) NEGATIVE (Negative) S. pyogenes GrpA ELIECER Negative (Negative) Independent Interpretation I performed an independent interpretation of an: CT Scan Interpretation: CT a/p w/o bowel obstruction or wall thickening. Radiology Impression Discussion of test interpretation with radiology: I have reviewed the radiologist's reading. Radiologist Impression: Ordering Physician: Xenia So Date of Service: 07/04/24 Procedure(s): CT abdomen pelvis wo IV con Accession Number(s): [id number] cc: Physician,Unknown ; Xenia So~ Report Number: [id number]: Total DLP = 958.00 mGy-cm EXAMINATION: CT ABDOMEN AND PELVIS WITHOUT CONTRAST CLINICAL INFORMATION: Epigastric pain. COMPARISON: None available. TECHNIQUE: Multidetector volumetric imaging was performed from the superior aspect of the liver through the pubic symphysis. Sagittal and coronal reformatted images were obtained on the technologist's workstation. This CT examination was performed using dose optimization techniques as appropriate, variously including the following: *Automated exposure control *Adjustment of mA and/or kV according to patient size (this includes techniques or standardized protocols for targeted exams where dose is matched to indication/reason for exam; i.e. extremities or head) *Use of iterative reconstruction technique. Total dose: 958 mGy centimeters FINDINGS: Inadequate evaluation of the intra-abdominal organs and vascular structures due to lack of IV contrast. LUNG BASES: Pulmonary groundglass, lower lung lobes. LIVER, GALLBLADDER, AND BILIARY TREE: Liver measures 20 cm. Decreased attenuation of the parenchyma. No intrahepatic biliary ductal dilatation. Status post cholecystectomy likely laparoscopic. No extrahepatic biliary ductal dilatation. PANCREAS: No peripancreatic fluid collections. No main pancreatic ductal dilatation. SPLEEN: 11 cm. ADRENAL GLANDS: No nodular lesions. KIDNEYS AND URETERS: Atrophic right kidney. No hydronephrosis or nephrolithiasis, left kidney. No hydronephrosis in the atrophic right kidney. BLADDER: Fluid-filled nearly collapsed with questionable wall thickening. GASTROINTESTINAL TRACT: Appendix is normal. Collapsed appearance of the left hemicolon. No intestinal obstruction pattern. No pneumatosis intestinalis. No pneumoperitoneum. No ascites. ABDOMINAL WALL: Diastases abdominal rectus muscles with a small tiny fat-containing umbilical hernia. Fat-containing left inguinal hernia. LYMPH NODES: No specific prominent less than 1 cm lymph nodes, mesenteric and retroperitoneum. VASCULAR: No aneurysm, abdominal aorta. PELVIC VISCERA: The seminal vesicles demonstrated normal size. Prostate gland is either absent or small. OSSEOUS STRUCTURES: Spondylosis L4-5 and L5-S1. Grade 1 retrolisthesis L4-5 on a degenerative basis resulting in central spinal canal and bilateral neuroforamina stenosis. Bilateral neuroforamina stenosis at L5-S1. No acute fracture. No gross lytic or blastic lesions.. CT/CT abdomen pelvis wo IV con IMPRESSION: Hepatomegaly and steatosis. Atrophic right kidney. No nephrolithiasis. Small tiny fat-containing umbilical hernia and fat-containing left inguinal hernia. Spondylosis L4-5 resulting in grade 1 retrolisthesis. Fleischner guidelines were followed. Electronically signed by: Milton Gaytan MD 07/04/2024 11:09 AM EST External Record Review External record reviewed: Inpatient record Prescription Management I considered prescription management with: Pain Medication Social Determinants Patient?s care significantly limited by Social Determinants of Health including: Other Social Determinant of Health Critical Care Time Critical Care Time Critical Care Time: No Discharge Plan Discharge Clinical Impression: Gastroenteritis Patient Disposition: Home, Self-Care Instructions: Gastroenteritis (ED) Additional Instructions: Your lab workup today was reassuring.? You tested negative for covid, flu, rsv, and strep throat. Your urine test was negative for infection. The CT scan of your abdomen shows incidental findings of fatty liver and small fat containing umbilical hernia and fat containing left inguinal hernia. You may follow up with general surgery for this. You were provided with a referral. Call them to establish care. Your symptoms are most consistent with a viral stomach bug, also known as gastroenteritis.? The treatment for this is supportive care. Symptoms usually resolve on their own in 48-72 hours.? The recommendation is rest and lots of oral hydration.? For the next 24 hours, stick to a NATHALIA diet (bananas rice, applesauce, tea, and toast) Zofran is an anti-nausea medication. This has been sent to your pharmacy for you to take as needed for nausea.? You can also try over the counter Pepto Bismol or Imodium as needed for upset stomach and diarrhea.? Take bentyl as needed for abdominal pain/cramping. Follow up with your primary care provider this week. If you develop new or worsening symptoms call 911 or come back to the ER for further evaluation. Prescriptions: New dicyclomine 10 mg capsule 10 mg PO BID PRN (Reason: abdominal pain) Qty: 10 0RF ondansetron 4 mg tablet,disintegrating 4 mg PO DAILY PRN (Reason: nausea and vomiting) 5 Days Qty: 14 0RF No Action cholecalciferol (vitamin D3) 50 mcg (2,000 unit) capsule 50 mcg PO DAILY Qty: 90 3RF benzonatate 200 mg capsule 200 mg PO TID PRN (Reason: cough) Qty: 30 0RF cefuroxime axetil 500 mg tablet 500 mg PO BID 7 Days Qty: 14 0RF azithromycin [Zithromax Z-Diomedes] 250 mg tablet See Rx Instructions .ROUTE .COMPLEX Qty: 6 0RF Rx Instructions: For 250 mg dose pack: take 500 mg today (day 1), then 250 mg for 4 days (days 2-5) Referrals: [facility] [Provider Group] Stand Alone Forms: Work/School Release Interventions: ED Discharge Assessment Last Done: 07/04/24 12:21 Discharge Date/Time: 07/04/24 12:21 Print Language: Somali
[2024-07-04 06:56] LABS: MANUAL DIFF FLAG NO
[2024-07-04 06:57] LABS: Basophils Percent Auto 0.3 % (0-2); Eosinophils Absolute Auto 0.2 X10*3/uL (0.0-0.4); Eosinophils Percent Auto 1.9 % (0-4); Hematocrit 44.7 % (42.0-52.0); Hemoglobin 15.7 g/dl (14.0-18.0); Imm Gran Abs Auto 0.05 X10*3/uL (0.00-0.03); Imm Gran Pct Auto 0.5 % (0.0-0.4); Lymphocytes Absolute Auto 0.5 X10*3/uL (1.2-4.9); Lymphocytes Percent Auto 4.8 % (20-40); Mean Corpuscular HGB Conc 35.1 g/dl (31.0-36.0); Mean Corpuscular Hemoglobin 30.5 pg (27.0-33.0); Mean Corpuscular Volume 86.8 fL (80.0-98.0); Mean Platelet Volume 10.4 fL (9.4-12.4); Monocytes Absolute Auto 0.3 X10*3/uL (0.1-1.2); Monocytes Percent Auto 2.7 % (2-11); Neutrophils Absolute Auto 9.2 x10*3/uL (2.0-8.3); Neutrophils Percent Auto 89.8 % (45-73); Platelet Count 207 X10*3/uL (160-400); Red Blood Count 5.15 X10*6/uL (4.60-5.80); Red Cell Distribution Width 12.1 % (11.0-16.0); White Blood Count 10.2 X10*3/uL (4.8-10.8)
[2024-07-04 07:17] LABS: Alanine Aminotransferase 58 U/L (0-40); Albumin Level 4.4 g/dL (3.5-5.0); Alkaline Phosphatase 84 U/L (39-117); Anion Gap 16 (12-20); Aspartate Amino Transferase 31 U/L (5-37); Bilirubin Total 0.6 mg/dL (0.0-1.0); Blood Urea Nitrogen 17 mg/dL (9-16); Calcium 9.4 mg/dL (8.4-10.2); Carbon Dioxide 21 mmol/L (22-29); Chloride 107 mmol/L (96-108); Creatinine Clr Calc Pharmacy 137.4; Estimated Glomerular Filt Rate > 60; Glucose Random 138 mg/dL (60-115); Lipase 15 U/L (8-78); Potassium 4.2 mmol/L (3.3-5.1); Sodium 140 mmol/L (135-145); Total Protein 7.8 g/dL (6.5-8.0)
[2024-07-04 07:35] LABS: Influenza A PCR NEGATIVE (Negative); Influenza B PCR NEGATIVE (Negative); Resp Syncy Virus RNA Qual PCR NEGATIVE (Negative); SARS COV2 PCR INHOUSE NEGATIVE (Negative)
[2024-07-04 08:50] VITALS: BP 133/74; PULSE 97; RESP 18; TEMP 37.4; O2SAT 99
[2024-07-04] MEDS: Ondansetron ODT 4 MG TAB.RAPDIS TRANSLINGU (08:52)
[2024-07-04] MEDS: Ketorolac Tromethamine 30 MG/ML VIAL IM (08:52)
[2024-07-04 08:58] LABS: IDNOW Serial# 58CA691E; Strep A Nucleic Acid Negative (Negative)
[2024-07-04 10:55] VITALS: BP 129/84; PULSE 91; RESP 17; TEMP 37.4; O2SAT 96
[2024-07-04 12:21] VITALS: BP 129/84; PULSE 91; RESP 17; TEMP 37.4; O2SAT 96
== END 2024-07-04 12:21 | disposition home or self-care (01) ==
PROVIDERS: Physician Assistant Medical; Emergency Provider Student in an Organized Health Care Education/Training Program
DX: K52.9 Noninfective gastroenteritis and colitis, unspecified (principal); R11.2 Nausea with vomiting, unspecified; R10.13 Epigastric pain; R10.2 Pelvic and perineal pain; Z03.818 Encounter for observation for suspected exposure to other biological agents ruled out; Z79.899 Other long term (current) drug therapy
CPT/HCPCS: 0241U; 74176; 80053; 83690; 85025; 87651; 96372; 99284; J1885

== ENCOUNTER → 2024-07-04 07:41 | Outpatient (BNV) | payer MEDICAID, SELFPAY | PROVIDERS: Emergency Provider Student in an Organized Health Care Education/Training Program; Visit Provider Radiology Diagnostic Radiology | DX: R16.0 Hepatomegaly, not elsewhere classified (principal); K76.0 Fatty (change of) liver, not elsewhere classified; N26.1 Atrophy of kidney (terminal) | CPT/HCPCS: 74176 ==

== ENCOUNTER 2024-08-21 08:48 | Outpatient (AMB) | payer SELFPAY ==
--- NOTE | 2024-08-21 08:51 | MHC.OFFVIS ---
Intake Visit Reasons: Umbilical hernia/LIH~ ER 07-04-24 Intake Note: Patient referred after ED visit for Umbical and LIH. Not sure how long hernias been present. Patient c/o: no concerns. 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 He himself has no hernia symptoms. At the ER visit, he was diagnosed with gastroenteritis. He presents here for follow-up regarding the CT scan findings. The patient otherwise tolerating a diet. He has regular bowel habits. He does do strenuous activities and this placed of employment. 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 Chart was reviewed and patient evaluate [facility] Surgical History Hx of cholecystectomy Family History Mother Schizophrenia Father No problems noted. Son No problems noted. Son No problems noted. Daughter No problems noted. Social History Alcohol intake: never Patient Tobacco Use Status: Never used Tobacco Physical Exam GI Other: Patient was examined both supine and standing with Valsalva. Corpulent abdomen. Small reducible umbilical hernia roughly 1 cm in size. Right groin negative. Genitalia within normal limits. Small reducible left inguinal hernia. Assessment & Plan Assessment & Plan (1) Umbilical hernia: Code(s): K42.9 - Umbilical hernia without obstruction or gangrene Category: Surgical (2) Left inguinal hernia: Code(s): K40.90 - Unilateral inguinal hernia, without obstruction or gangrene, not specified as recurrent Category: Surgical Plan At present, these hernias or asymptomatic. My recommendation is to treat the patient conservatively. Should these increased in size or become symptomatic, patient instructed to contact the office for further evaluation/intervention. In the meantime, patient will otherwise follow-up p.r.n.. All questions answered. Coding Level of Care Code New Pt Level 4 (15846) Diagnoses Umbilical hernia K42.9 Left inguinal hernia K40.90
--- OUTSIDE RECORDS SUMMARY | 2024-08-21 09:28 | XMS_ITS | Encounter Summary ---
Author Organization [employer] Address [address] [place] [address] Care Team Providers Care Roll Mechanic Name Role Phone Daphne Villa MD Primary Care Provider [phone] Encounter Details Date Type Department Care Team (Latest Contact Info) Description 07/30/2024 Travel Social History Tobacco Use Types Packs/Day Years Used Date Smoking Tobacco: Never Passive Smoke Exposure: Never Smokeless Tobacco: Never Alcohol Use Standard Drinks/Week Comments Never 0 (1 standard drink = 0.6 oz pur e alcohol) Depression Answer Date Recorded Patient Health Questionnaire-9 Score 21 07/30/2024 Patient Health Questionnaire-9 Score 21 07/30/2024 Last PHQ-9: Questionnaire Data Not on file 0 07/30/2024 Housing Stability Answer Date Recorded What is your housing situation today? I have love taylor 05/02/[address] you li ve. Do you have problems with any of the following? None of the above 05/02/2023 Food Insecurity Answer Date Recorded Within the past 12 months, y ou worried that your food would run out before you got money to buy more: Never True 05/02/2023 Within the past 12 months,th e food you bought just didn't last and you didn't have enough money to get more: Never True 11/2022 Transportation Answer Date Recorded In the past 12 months, has l ack of transportation kept you from medical appts, meetings, work or from getting things needed for daily living? No 05/02/2023 Utilities Answer Date Recorded In the past 12 months, has t he electric, gas, oil or water company threatened to shut off services in your home? No 05/02/2023 Depression Answer Date Recorded Patient Health Questionnaire-2 Score 5 07/30/2024 Sex and Gender Information Value Date Recorded Sex Assigned at Male 04/26/2022 10:22 AM EDT Legal Sex Male 10:22 AM EDT Gender Identity Male 04/26/2022 10:22 AM EDT Sexual Orientation Choose not to disclose 2021 10:22 AM EDT documented as of this encounter Plan of Treatment Upcoming Encounters Date Type Department Care Team ([facility] st Contact Info) Description 09/20/2024 11:30 AM EDT Office Visit [facility] [address] [place] [address] Sunny Pacheco MD [address] [place] [address] documented as of this encounter Visit Diagnoses Not on filedocumented in this encounter Additional Health Concerns Assessment Noted Time PHQ-9 Depression Total Score: 21 025 1:25 PM EST documented as of this encounter Care Teams Roll Mechanic Relationship Specialty Start Date End Date Daphne Villa MD [address] [place] [id number] PCP - General Family Medicine 01/28/22 documented as of this encounter
--- OUTSIDE RECORDS SUMMARY | 2024-08-21 09:28 | XMS_ITS | Clinical Summary ---
Author Organization [facility] Address [address] [place] [address] Care Team Providers Care Oracle Business Intelligence Developer Name Role Phone Unavailable Primary Care Provider Unavailabl e Social History Tobacco Use Types Packs/Day Years Used Date Smoking Tobacco: Never Assessed Sex and Gender Information Value Date Recorded Sex Assigned at Not on file Legal Sex Male 4:33 AM EST Gender Identity Not on file Sexual Orientation Not on file Last Filed Vital Signs Vital Sign Reading Time Taken Comments Blood Pressure - - Pulse - - Temperature - - Respiratory Rate - - Oxygen Saturation - - Inhaled Oxygen Concentration - - Weight 129 kg (285 lb) 01/04/2023 2:36 PM EDT Height 182.9 cm (6') 01/04/2023 2:36 PM EDT Body Mass Index 38.65 01/04/2023 2:36 PM EDT Plan of Treatment Health Maintenance Due Date Last Done Comments DTaP,Tdap,and Td Vaccines (1 - Tdap) 2010 Hepatitis B Vaccines (1 of 3 - 19+ 3-dose series) 2010 Depression Screening 05/30/2022 HIV Screening 05/30/2022 Hepatitis C Screening 05/30/2022 Social Influencers of Health Screening 05/30/2022 COVID-19 Vaccine ( - 2023-2 5 season) 2024 Influenza Vaccine (#1) 2024 HIB Vaccines Aged Out No longer eligi ble based on patient's age to complete this topic HPV Vaccines Aged Out No longer eligi ble based on patient's age to complete this topic Hepatitis A Vaccines Aged Out No long er eligible based on patient's age to complete this topic IPV Vaccines Aged Out No longer eligi ble based on patient's age to complete this topic MMR Vaccines Aged Out No longer eligi ble based on patient's age to complete this topic Meningococcal ACWY Vaccine Aged Out N o longer eligible based on patient's age to complete this topic Meningococcal B Vacine Aged Out No lo nger eligible based on patient's age to complete this topic Pneumococcal Vaccine: Pediat rics (0 to 5 Years) and At-Risk Patients (6 to 64 Years) Aged Out No longer eligible b ased on patient's age to complete this topic RSV Immunization Patients Un traci 20 months Aged Out No longer eligible b ased on patient's age to complete this topic Varicella Vaccines Aged Out No longer eligible based on patient's age to complete this topic
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
--- OUTSIDE RECORDS SUMMARY | 2024-08-21 09:28 | XMS_ITS | Encounter Summary ---
Author Organization [employer] Address [address] [facility] 7[address] [place] [address] Care Team Providers Care Leather Toggler Name Role Phone Daphne Villa MD Primary Care Provider [phone] Reason for Visit * Reason Comments ER Follow-up Encounter Details Date Type Department Care Team (Latest Contact Info) Description 07/30/2024 1:15 PM EST Office Visit [facility] MED & PEDS [address] [place] [address] Sunny Pacheco MD [address] [place] [address] Gastroenteritis (Primary Dx); Mood disorder (CMS/HCC); Class 2 obesity due to excess calories without serious comorbidity with body mass index (BMI) of 38.0 to 38.9 in adult Social History Tobacco Use Types Packs/Day Years [...] AM EDT documented as of this encounter Last Filed Vital Signs Vital Sign Reading [...] Mass Index 41.3 07/30/2024 1:19 PM EST documented in this encounter Progress Notes * Sunny Pacheco MD - 07/30/2024 1:15 PM EST Subjective Patient ID: Dayo Ornelas is a 34 y.o. male who presents for ER Follow-up. ER Follow-up Pertinent negatives include no chills. Evaluated in the emergency department on July 04, 2024 for epigastric abdominal pain, nausea vomiting diarrhea. The pain was described as a cramping. Started after patient had a large meal made of rice with chicken for from a food truck. CBC without leukocytosis. Left shift. No anemia. H&H stable. Chemistry without acute electrolyte abnormality discharged with the impression of gastroenteritis chronic disease including, ondansetron. Patient has improved and has resumed his regular work. Now has 3 episodes of watery diarrhea instead of 8 as when the symptoms started. No fever or constitutional symptoms today. Mr. Dayo Ornelas is also complaining of feeling depressed and frustrated because of his weight and would like to try weight loss medication. Has history of pancreatitis, gallstones s/p cholecystectomy. Patient Active Problem List Diagnosis Chronic low back pain Obesity Elevated blood pressure reading Acute stress disorder Anxiety Mood disorder (CMS/HCC) Current Outpatient Medications on File Prior to Visit Medication Sig Dispense Refill acetaminophen (Tylenol 8 Hour) 650 MG ER tablet Take 1 tablet (650 mg) by mouth every 8 (eight) hours if needed for mild pain. 90 tablet 0 baclofen (Lioresal) 10 MG tablet TAKE 1 TABLET BY MOUTH THREE TIMES A DAY 90 tablet 0 Blood Pressure kit Use to monitor BP once a day and prn, please write down and bring to next appointment. Target < 140/90 mmHg. 1 kit 0 cholecalciferol (Vitamin D-3) 125 MCG (5000 UT) capsule Take by mouth in the morning. Diclofenac Sodium 1 % gel Apply 1 inch to affected area bid prn pain 100 g 0 escitalopram (Lexapro) 5 MG tablet Take 1 tablet (5 mg) by mouth Once per day. Take in the morning.30 tablet 0 hydrOXYzine pamoate (Vistaril) 25 MG capsule Take 1 capsule (25 mg) by mouth every 12 (twelve) hours if needed for anxiety (Pt. instructed to use medication as needed.). 60 capsule 0 pantoprazole (ProtoNix) 40 MG EC tablet Take 1 tablet by mouth 1 (one) time each day. QUEtiapine (SEROquel) 50 MG tablet Take 1 tablet (50 mg) by mouth at bedtime. 30 tablet 1 No current facility-administered medications on file prior to visit. No Known Allergies Review of Systems Constitutional: Negative for activity change, appetite change and chills. Eyes: Negative for pain, redness and itching. Genitourinary: Negative for enuresis, flank pain, frequency and genital sores. Objective BP 136/80 (BP Location: Right arm, Patient Position: Sitting, BP Cuff Size: Large adult) Pulse 70 Temp 97.4 ??F (36.3 ??C) (Oral) Resp 20 Ht 5' 11.65 (1.82 m) Wt 301 lb 9.6 oz (137 kg) SpO2 98% BMI 41.30 kg/m?? Physical Exam Constitutional: General: He is not in acute distress. Appearance: He is obese. He is not ill-appearing, toxic-appearing or diaphoretic. Cardiovascular: Rate and Rhythm: Normal rate. Pulmonary: Effort: Pulmonary effort is normal. Abdominal: Palpations: Abdomen is soft. Comments: Surgical scar. S/p cholecystectomy Neurological: General: No focal deficit present. Mental Status: He is alert. Assessment/Plan Diagnoses and all orders for this visit: Gastroenteritis Comments: Improving Push fluids with electrolytes Stool workup in 1 week if the symptoms are not completely resolved. Orders: - Ova and Parasites; Future - Stool - Gastrointestinal panel; Future Mood disorder (CMS/HCC) Comments: Already on care. Patient is very concerned because he has been unable to lose weight with a low-carb diet We will consider an antidepressant at the next visit Class 2 obesity due to excess calories without serious comorbidity with body mass index (BMI) of 38.0 to 38.9 in adult Comments: History of pancreatitis per pt GLP-1 receptor agonist contraindicated Some lifestyle modification recommended Orders: - Phentermine-Topiramate 3.75-23 MG capsule sustained-release 24 hr; 1 capsule daily documented in this encounter Plan of Treatment Upcoming Encounters Date Type Department Care Team ([facility] st Contact Info) Description 09/20/2024 11:30 AM EDT Office Visit [facility] MED & PEDS [address] [place] [address] Sunny Pacheco MD [address] [place] [address] Scheduled Orders Name Type Priority Associated Diagnoses Orde r Schedule Ova and Parasites Microbiology Routine Gastroenteritis Expected: 07/30/2024 (Approximate), Expires: 07/30/2025 Stool - Gastrointestinal panel Microbiology Routine Gastroenteritis Expected: 07/30/2024 (Approximate), Expires: 07/30/2025 documented as of this encounter Visit Diagnoses Diagnosis Gastroenteritis- Primary Other and unspecified noninfectious gastroenteritis and colitis Mood disorder (CMS/HCC) Unspecified episodic mood disorder Class 2 obesity due to excess calories without serious comorbidity with body mass index (BMI) of 38.0 to 38.9 in adult documented in this encounter Additional Health Concerns Assessment Noted Time PHQ-9 Depression Total Score: 21 025 1:25 PM EST documented as of this encounter Care Teams Leather Toggler Relationship Specialty Start Date End Date Daphne Villa MD [address] [place] [address] PCP - General Family Medicine 01/28/22 documented as of this encounter
== END 2024-08-21 09:05 | disposition home or self-care (01) ==
PROVIDERS: PCP Family Medicine; Visit Provider Surgery
DX: K42.9 Umbilical hernia without obstruction or gangrene (principal); K40.90 Unilateral inguinal hernia, without obstruction or gangrene, not specified as recurrent
CPT/HCPCS: 99204

== ENCOUNTER → 2024-08-21 08:48 | Outpatient (BNVA) | payer SELFPAY | PROVIDERS: PCP Family Medicine; Visit Provider Surgery | DX: K42.9 Umbilical hernia without obstruction or gangrene (principal); K40.90 Unilateral inguinal hernia, without obstruction or gangrene, not specified as recurrent | CPT/HCPCS: 99202 ==

== ENCOUNTER 2024-10-01 09:17 | Outpatient (AMB) | payer MEDICAID, SELFPAY ==
--- NOTE | 2024-10-01 09:22 | MHC.OFFVIS ---
Vital Signs 10/01/24 09:30 Height 6 ft Weight 287 lb BMI 38.9 BP 145/72 H Blood Pressure Location Rt brachial Position Sitting Pulse 72 Intake Visit Reasons: Re-discuss hernia surgery Intake Note: Patient called and scheduled today's appointment to re- discuss hernia surgery. Patient c/o: on and off abdominal pain on Lt groin area. States constant working and heavy lifting at work has made pain worse. Grain Operations Manager Required: Yes Accompanied by: Self / Same As Patient Allergies No Known Allergies [No Known Allergies*] Allergy (Verified 10/01/24 09:32) HPI Comments Details: Patient whom I know from the past who presents here with a symptomatic left inguinal hernia. He had a small hernia on initial evaluation. He has been quite active playing variety of sports and activities and has had marked left inguinal/groin discomfort and a bulge. He would like this to be repaired. He otherwise tolerating a diet. He has regular bowel habits. He does do strenuous activities at his place of employment Chart was reviewed and patient evaluated [facility] Surgical History Hx of cholecystectomy Family History Mother Schizophrenia Father No problems noted. Son No problems noted. Son No problems noted. Daughter No problems noted. Social History Alcohol intake: never Patient Tobacco Use Status: Never used Tobacco Physical Exam Vital Signs: Last Vital Signs Pulse 72 10/01/24 09:30 BP 145/72 H 10/01/24 09:30 BMI result Body Mass Index 38.9 Chest Other: Chest breath sounds bilaterally, HS 1 in 2 GI Other: Patient was examined both supine and standing with Valsalva. Moderately corpulent abdomen. Right groin negative. Genitalia within normal limits. Small asymptomatic reducible umbilical hernia. 1 cm in size. Patient was a small to medium sized reducible left inguinal hernia. Assessment & Plan Assessment & Plan (1) Left inguinal hernia: Code(s): K40.90 - Unilateral inguinal hernia, without obstruction or gangrene, not specified as recurrent Category: Surgical Plan Risks, benefits, and alternatives of open left inguinal hernia repair with mesh were reviewed with the patient and included but not limited to bleeding, infection, recurrence, numbness, pain, scarring the patient wished to proceed. All questions answered. Arrangements were made for this on a day which is convenient for him. Coding Level of Care Code Est Pt Level 5 (30487) Diagnoses Left inguinal hernia K40.90
[2024-10-01 09:30] VITALS: BP 145/72; PULSE 72; BMI 38.9
--- OUTSIDE RECORDS SUMMARY | 2024-10-01 10:21 | XMS_ITS | Clinical Summary ---
Author Organization [employer] [facility] Address [address] [place] [address] Care Team Providers Care Drag Car Racer Name Role Phone Unavailable Primary Care Provider [...] - 2023-2 5 season) 2024 Influenza Vaccine (Season Ended) 2025 HIB Vaccines Aged Out No longer eligi [...]
--- OUTSIDE RECORDS SUMMARY | 2024-10-01 10:21 | XMS_ITS | Clinical Summary ---
Author Organization [employer] Address [address] [facility] 7t [place] [address] Care Team Providers Care Deckhand Crab Boat Name Role Phone Daphne Villa MD Primary Care Provider [phone] Allergies No known active allergies Medications * [...] support. Provided information for CB program in [place]. Anxiety 04/13/2024 Assessment & Plan (04/20/2024 2:32 [...] support. Provided information for [facility] program in [place]. Assessment & Plan (04/13/2024 2:59 PM EDT): [...] case he changes his mind. Pt contacted PSYCHIATRIC programs last month and was told they [...] recommended reduction of 20-30% of maintenance calories; is/it project manager referral offered. Recommended to decrease soda and sugary beverage consumption. Recommended at least 20 g per meal of protein to assist with satiety. Recommended at least 150 min/week of moderate intensity exercise. Phentermine/topamax: 8/50 mg. Discussed side effects-> tachycardia, HTN, teratogenic, cognitive dysfuction, metabolic acidosis, constipation, dysgeusia. Denies hx of , hyperthyroidism, MAOI use or glaucoma. Denies hx of kidney stones. Encounters Date Type Department Care Team Description 09/20/2024 Travel 09/07/2024 Population Health Risk Score [facility] () Department [address] [place] [id number] Provider, Population Health Generic 07/30/2024 1:15 PM EST Office Visit [facility] MED & PEDS [address] [place] [address] Sunny Pacheco MD Gastroenteritis (Primary Dx); Mood disorder (CMS/HCC); Class 2 obesity due to excess calories without serious comorbidity with body mass index (BMI) of 38.0 to 38.9 in adult 07/30/2024 Travel 07/04/2024 Telephone [facility] MED & PEDS [address] [place] [address] Daphne Villa MD Hospital Follow-up from Last 3 Months Immunizations Name Administration [...] t he electric, gas, oil or water [employer] threatened to shut off services in your [...] Upcoming Encounters Date Type Department Care Team (Late st Contact Info) Description 10/01/2024 11:00 AM EDT Office Visit [facility] CHC MED & PEDS [address] [place] [address] Sunny Pacheco MD [address] [place] [address] Health Maintenance Due Date Last Done Comments [...] (01/13/2023 11:08 AM EDT) Triglycerides 116 mg/dL [facility] Comment:Desirable Triglyceri de: less than 150 mg/dLBorderline High Triglyceride 150-199 mg/dLHigh Triglyceride: 200-499 mg/dLVery High Triglyceride: greater than or equal to 5OO mg/dL Cholesterol 194 mg/dL [facility] Comment:Desirable Cholestero l: less than 200 mg/dLBorderline High Cholesterol: 200-239 mg/dLHigh Cholesterol: greater than 239 mg/dL LDL Cholesterol Calculated 124 mg/dl [facility] Comment:Desirable LDL: less than 100 mg/dLNear Optimal/Above Optimal LDL: 110- 129 mg/dLBorderline High LDL: 130-159 mg/dLHigh LDL: 160-189 mg/dLVery High LDL: greater than or equal to 190 mg/dL HDL Cholesterol 47 mg/dL [facility] Comment:Desirable HDL: great er than 40 mg/dL Note: This HDL assay may give artificially low results in patients with liver disease. 01/13/2023 11:0 8 AM EDT 01/13/2023 11:08 AM EDT us Generic External Data Provider LAB BLOOD ORDERAB LES Final Result [facility] [address] [place] [address] [phone] * HEPATITIS C ANTIBODY RFLX (01/28/2022 12:40 PM EDT) Hepatitis C Antibody Nonreactive Nonreactive [facility] Comment: Antibodies to HCV not detected; does not exclude early acute HCV infection. 01/28/2022 12:4 0 PM EDT us Daphne Villa MD HISTORICAL/NON ORDERABLE LABS Final Result [facility] [address] * HIV AB/AG (01/28/2022 12:40 PM EDT) HIV AB/AG Nonreactive Nonreactive [facility] Comment: HIV-1 p24 Ag and/or [...] detection of this assay. ?? The [employer] Claim Approver HIV Ag/Ab Combo assay result and supplemental assay results should be interpreted in conjunction with the patient's clinical presentation, history and other laboratory results. ??If the results are inconsistent with clinical evidence, additional testing is suggested to confirm the result. Hepatitis B Surface Antigen Negative Negative [facility] 01/28/2022 12:4 0 PM EDT us Daphne Villa MD HISTORICAL/NON ORDERABLE LABS Final Result [facility] [address] [place] [address], from Last 3 Months or Most Recently Relevant to Health Maintenance [email or web address] [employer] Care Teams Deckhand Crab Boat Relationship Specialty Start Date End Date Daphne Villa MD [address] [place] [address] PCP - General Family Medicine 01/28/22
== END 2024-10-01 09:39 | disposition home or self-care (01) ==
LOC: HO.HGS 09:17
PROVIDERS: PCP Family Medicine; Visit Provider Surgery
DX: K40.90 Unilateral inguinal hernia, without obstruction or gangrene, not specified as recurrent (principal)
CPT/HCPCS: 99214

== ENCOUNTER → 2024-10-01 09:17 | Outpatient (BNVA) | payer MEDICAID, SELFPAY | PROVIDERS: PCP Family Medicine; Visit Provider Surgery | DX: K40.90 Unilateral inguinal hernia, without obstruction or gangrene, not specified as recurrent (principal) | CPT/HCPCS: 99212 ==

== ENCOUNTER 2024-11-22 05:52 | Day surgery (SDC) | payer MEDICAID, SELFPAY ==
--- OUTSIDE RECORDS SUMMARY | 2024-11-06 15:27 | XMS_ITS | Clinical Summary ---
Author Organization [employer] Address [address] [facility] [address] [place] [address] Care Team Providers Care Supervisor Small Appliance Assembly Name Role Phone Daphne Villa MD Primary Care Provider Allergies No known active allergies Medications * [...] TIMES A DAY 90 tablet 4 Active phentermine 15 MG capsuleIndicatio ns:Class 3 severe obesity due to excess calories with serious comorbidity and body mass index (BMI) of 40.0 to 44.9 in adult Take 1 capsule (15 mg) by mouth before breakfast. 30 capsule 5 Active topiramate (Topamax) 25 MG tabletIndication s:Class 3 severe obesity due to excess calories with serious comorbidity and body mass index (BMI) of 40.0 to 44.9 in adult Take 1 tablet (25 mg) by mouth every 12 (twelve) hours. 30 tablet 1 5 10/02/19 26 Active Active Problems Problem Noted Date Diagnosed [...] support. Provided information for [facility]HC program in [place]. Anxiety 04/13/2024 Assessment & Plan (04/20/2024 2:32 [...] support. Provided information for [facility] program in [place]. Assessment & Plan (04/13/2024 2:59 PM EDT): [...] case he changes his mind. Pt contacted [facility] programs last month and was told they [...] will seek out for therapy services with N[facility]. Information given. clinician will provide additional assistance [...] recommended reduction of 20-30% of maintenance calories; band head saw operator referral offered. Recommended to decrease soda and [...] Encounters Date Type Department Care Team Description 10/01/2024 11:00 AM EDT Office Visit [facility] MED & PEDS [address] [place], [place] [id number] Sunny Pacheco MD Gastroenteritis (Primary Dx); Dietary counseling; Exercise counseling; Class 3 severe obesity due to excess calories with serious comorbidity and body mass index (BMI) of 40.0 to 44.9 in adult; Left inguinal hernia; Encounter for sterilization 10/01/2024 Travel 09/20/2024 Travel 09/07/2024 Population Health Risk Score [facility] () Department [address] [address] Provider, Population Health Generic from Last 3 Months Immunizations Name Administration [...] Sign Reading Time Taken Comments Blood Pressure 134/82 10/01/2024 11:22 AM EDT Pulse 82 10/01/2024 11:22 AM EDT Temperature 36.8 ??C (98.3 ??F) 10/01/2024 11:22 AM E DT Respiratory Rate 20 10/01/2024 11:22 AM EDT Oxygen Saturation 98% 07/30/2024 1:19 PM EST Inhaled Oxygen Concentration - - Weight 131 kg (288 lb 3.2 oz) 10/01/2024 11:22 A M EDT Height 180.3 cm (5' 11 ) 10/01/2024 11:22 AM EDT Body Mass Index 40.2 10/01/2024 11:22 AM EDT Plan of Treatment Upcoming Encounters Date Type Department Care Team (Late st Contact Info) Description 11/21/2024 3:30 PM EDT Office Visit [facility] CHC MED & PEDS [address] [place] [address] Sunny Pacheco MD [address] [place] [address] Health Maintenance Due Date Last Done Comments Family Planning (PISQ) 2006 Hepatitis B Vaccines (1 of 3 - 19+ 3-dose series) 2010 SDOH Screening 07/15/2023 07/15/2022 COVID-19 Vaccine (3 - 2023-2 5 season) 2024 08/08/2021, 06/13/2021 Depression Monitoring 01/27/2025 07/30/2024 , 07/30/2024 Alcohol/Substance Use Screening 07/30/2025 07/30/2024 Depression [...] (01/13/2023 11:08 AM EDT) Triglycerides 116 mg/dL [facility] Comment:Desirable Triglyceri de: less than 150 mg/dLBorderline High Triglyceride 150-199 mg/dLHigh Triglyceride: 200-499 mg/dLVery High Triglyceride: greater than or equal to 5OO mg/dL Cholesterol 194 mg/dL [facility] Comment:Desirable Cholestero l: less than 200 mg/dLBorderline High Cholesterol: 200-239 mg/dLHigh Cholesterol: greater than 239 mg/dL LDL Cholesterol Calculated 124 mg/dl [facility] Comment:Desirable LDL: less than 100 mg/dLNear Optimal/Above Optimal LDL: 110- 129 mg/dLBorderline High LDL: 130-159 mg/dLHigh LDL: 160-189 mg/dLVery High LDL: greater than or equal to 190 mg/dL HDL Cholesterol 47 mg/dL [facility] Comment:Desirable HDL: great er than 40 mg/dL Note: This HDL assay may give artificially low results in patients with liver disease. 01/13/2023 11:0 8 AM EDT 01/13/2023 11:08 AM EDT us Generic External Data Provider LAB BLOOD ORDERAB LES Final Result Performing Organization Address [facility]/ZIP Co de Phone Number [facility] [address] [place] [address] [phone] * HEPATITIS C ANTIBODY RFLX (01/28/2022 12:40 PM EDT) Hepatitis C Antibody Nonreactive Nonreactive [facility] Comment: Antibodies to HCV not detected; does not exclude early acute HCV infection. 01/28/2022 12:4 0 PM EDT us Daphne Villa MD HISTORICAL/NON ORDERABLE LABS Final Result Performing Organization Address [facility]/ZIP Co de Phone Number [facility] [address] * HIV AB/AG (01/28/2022 12:40 PM EDT) HIV AB/AG Nonreactive Nonreactive [facility] Comment: HIV-1 p24 Ag and/or [...] detection of this assay. ?? The [employer] Portal Consultant HIV Ag/Ab Combo assay result and supplemental assay results should be interpreted in conjunction with the patient's clinical presentation, history and other laboratory results. ??If the results are inconsistent with clinical evidence, additional testing is suggested to confirm the result. Hepatitis B Surface Antigen Negative Negative [facility] 01/28/2022 12:4 0 PM EDT us Daphne Villa MD HISTORICAL/NON ORDERABLE LABS Final Result [facility] [address] from Last 3 Months or Most Recently Relevant to Health Maintenance Insurance [facility] C3 Care Teams Supervisor Small Appliance Assembly Relationship Specialty Start Date End Date Daphne Villa MD [address] [place] [address] PCP - General Family Medicine 01/28/22
--- OUTSIDE RECORDS SUMMARY | 2024-11-06 15:27 | XMS_ITS | Clinical Summary ---
Author Organization [employer] [facility] Address [address] [place] [address] Care Team Providers Care Hair Machine Operator Name Role Phone Unavailable Primary Care Provider [...] age to complete this topic Meningococcal B Vaccine Aged Out No l onger eligible based on patient's age to complete [...]
[2024-11-20 09:22] VITALS: BMI 38.9
--- NOTE | 2024-11-21 09:10 | HO.ANESPROP2 ---
Documented by User: Kell Holley NP 11/21/24 09:12 HPI - Anesthesia Eval Consult details Narrative: 34yo M for Left Hernia Inguinal Reducible PMFSH Active Problems Active Problems: All Active Problems Left inguinal hernia (Acute) Umbilical hernia (Acute) Morbid obesity (Acute) Family History Family History Mother Schizophrenia Father No problems noted. Son No problems noted. Son No problems noted. Daughter No problems noted. Surgical History Surgical History Hx of cholecystectomy Social History Social History Alcohol intake: never Patient Tobacco Use Status: Never used Tobacco e-Cigarette/Vaping Use: Never Used Use of substances other than those prescribed or required for medical reasons: No Have you been hit, kicked, punched, or otherwise hurt by someone within the past year? If so, by whom?: No Are you DNR?: No Advance Directives: No Advance Directives Information Provided: Yes Poor oral hygiene: No Meds Allergies Allergy/AdvReac Type Severity Reaction Status Date / Time No Known Allergies Allergy Verified 11/22/24 06:16 [No Known Allergies*] Exam Height,Weight and Vital Signs: Height 6 ft Weight 130.181 kg Pertinent Lab Results Pertinent Lab Results: Laboratory Tests 07/04/24 06:45 WBC 10.2 Hgb 15.7 Hct 44.7 Plt Count 207 D Sodium 140 Potassium 4.2 Chloride 107 Carbon Dioxide 21 L BUN 17 H Creatinine 1.10 Narrative Narrative: EKG 04/2024 Vent. Rate : 094 BPM Atrial Rate : 094 BPM P-R Int : 150 ms QRS Dur : 086 ms QT Int : 342 ms P-R-T Axes : 047 043 039 degrees QTc Int : 427 ms Normal sinus rhythm Normal ECG When compared with ECG of 28-JAN-2022 12:00, No significant change was found Assessment and Plan Assessment Anesthesia Assessment: Chart Reviewed Documented by User: Scooter Viramontes MD 11/22/24 06:58 PMFSH Family History Family History Mother Schizophrenia Father No problems noted. Son No problems noted. Son No problems noted. Daughter No problems noted. Family history of problems with anesthesia: Unobtainable Surgical History Surgical History Hx of cholecystectomy History of Problems with Anesthesia: No Social History Social History Alcohol intake: never Patient Tobacco Use Status: Never used Tobacco e-Cigarette/Vaping Use: Never Used Use of substances other than those prescribed or required for medical reasons: No Have you been hit, kicked, punched, or otherwise hurt by someone within the past year? If so, by whom?: No Are you DNR?: No Advance Directives: No Advance Directives Information Provided: Yes Poor oral hygiene: No Meds Allergies Allergy/AdvReac Type Severity Reaction Status Date / Time No Known Allergies Allergy Verified 11/22/24 06:16 [No Known Allergies*] Exam Airway Mallampati Class: III Loose/Missing/Broken Teeth: Yes and Lower (brocken molar on the rignt) Heart: RRR Lungs: CTA Assessment and Plan Final Anesthetic Review Family History of Problems with Anesthesia: Unobtainable History of Problems with Anesthesia: No NPO: Yes ASA Class: II (obesity) Patient Risk: Low Procedure Risk: Low Anesthetic Plan Anesthetic Plan: GA Disposition: Standard PACU
[2024-11-22] VITALS (11 sets, daily range): BP systolic 102–142; BP diastolic 61–76; PULSE 57–66; RESP 15–18; TEMP 36.1–36.5; O2SAT 96–100; BMI 38.0
[2024-11-22] MEDS: Lactated Ringers 1,000 ML 100 ML IVCONT (06:29)
--- NOTE | 2024-11-22 07:14 | MHC.SHP ---
Pre-Procedural Eval Section A - 24 Hr Update-Section A only Date of Service: 11/22/24 Section B - Complete if H&P > 30 days Chief Complaint: Unilateral inguinal hernia, without obstruction or Details of Present Illness: 54-year-old male with a reducible left inguinal hernia Relevant Family History (Specify if Yes): No Relevant Social History: None Present Medications: see Short Stay Collaborative assessment Medical History: Significant History (Morbid obesity) Allergies: Allergies Allergy/AdvReac Type Severity Reaction Status Date / Time No Known Allergies Allergy Verified 11/22/24 06:16 [No Known Allergies*] Review of Systems Sugical H&P ROS: Negative: Constitution, Cardiovascular and Respiratory Exam Surgical H&P Exam: Normal: Heart, Normal: Lungs and Normal: Abdomen (Left inguinal hernia) Plan Diagnosis/Plan: Unchanged I have reviewed the history and physical and performed a pertinent physical examination on my patient. No changes have occurred unless specified. Time Spent With Patient Time: Total time managing care of this patient today ____ minutes.
--- NOTE | 2024-11-22 08:21 | P.OP_ITS ---
Operative Note Operative Note Date of Service: 11/22/24 Narrative: Preop diagnosis: Left inguinal hernia, reducible Postop diagnosis: The same, indirect Procedure: Repair of left inguinal hernia with mesh Surgeon: Aric Garcia MD assistant community director: DEMETRIUS Mcclure The patient is a 34-year-old male with a reducible mass in the left groin this has with the inguinal hernia. He was initially seen by Dr. Ortiz and was scheduled for repair. He understood the technique of the planned procedure as well as the risks, benefits, and alternatives. He was brought to the operating room and placed supine under general anesthesia via laryngeal mask airway. The left groin was prepped and draped in the usual sterile fashion. A surgical time-out was done. The patient received cefazolin 2 g IV preoperatively I infiltrated the planned line of incision with lidocaine 1%. I made this incision along an imaginary line from the anterior superior iliac spine to the pubic ramus with a blade 15. This was carried down through the full-thickness of the skin and subcutaneous fat. He has noted that the patient was morbidly obese and had a very thick amount of subcutaneous fat in this area so we had to do a lot of dissection to expose the external oblique aponeurosis. The external oblique aponeurosis was gently define and I was able to visualize the external ring. I opened up the external oblique aponeurosis by making short incision with a blade 15 and extending this inferomedially to connect with the external ring. The inguinal canal was therefore entered. I applied hemostasis on the divided edges of the aponeurosis. I bluntly dissected the underside to create s pace with the mesh. By doing so, as able to visualize the large hernia. This was fat containing. I gently dissected the spermatic cord and its contents along with the hernia with my index finger until was able to pass a Percy drain around this. This Harvard drain was used for retraction. I carefully dissected the hernia contents which was all fat off of the rest of the cord structures until was able to reduce this through the internal ring. This was therefore an indirect hernia. I reinforced the internal ring with a medium- sized Prolene plug. The plug was secured Prolene 2 sutures to the shelving edge of the inguinal meant laterally and the internal oblique superiorly medially using the inner leaves of the plug. I reinforced the entire floor of the canal with a keyhole mesh. The tails of the mesh were passed around the cord at the level of the internal ring and were secured together with Prolene 2 sutures I flattened the mesh and secured this with a Prolene 2 sutures to the shelving edge of the inguinal meant laterally, the internal oblique superiorly medially as well as the pubic ramus inferomedially We observed for hemostasis. Once hemostasis was confirmed, we irrigated. I suctioned out the irrigant fluid. We removed the Harvard drain. I then closed the mentally oblique aponeurosis using a running Polysorb 2-0 stitch to re- create the external ring The thick subcutaneous layer was reapposed with Polysorb 3-0 simple interrupted sutures. Skin closure was achieved with Polysorb 4-0 subcuticular running stitch. Steri-Strips and dressings were applied. The area was infiltrated with Marcaine 0.5% for postop analgesia. The procedure was completed The patient tolerated procedure well. There were no immediate complications. Initial and final counts of sponges and instruments were correct. Estimated blood loss was less than 25 cc. The patient was extubated without difficulty and transferred to the recovery room with stable vital signs.
[2024-11-22] MEDS: fentaNYL citrate/PF 100 MCG/2 ML VIAL 50 MCG IVPUSH ×2 (09:05→09:15)
[2024-11-22] MEDS: oxyCODONE HCl Immed Release 5 MG TABLET PO (09:40)
--- NOTE | 2024-11-22 10:37 | PC.NURSE ---
CHIEF CONSTRUCTION INSPECTOR USED FOR DISCHARGE INSTRUCTIONS.
== END 2024-11-22 10:20 | disposition home or self-care (01) ==
PROVIDERS: Visit Provider Surgery
PROC: (CPT 49505; principal; 2024-11-22 07:30)
DX: K40.90 Unilateral inguinal hernia, without obstruction or gangrene, not specified as recurrent (principal); R10.32 Left lower quadrant pain; E66.01 Morbid (severe) obesity due to excess calories; Z68.38 Body mass index [BMI] 38.0-38.9, adult; Z90.49 Acquired absence of other specified parts of digestive tract
CPT/HCPCS: 49505; C1781; J0131; J0690; J1100; J2003; J2250; J2405; J2704; J2795; J3010

== ENCOUNTER → 2024-11-22 05:52 | Outpatient (BNV) | payer MEDICAID, SELFPAY | PROVIDERS: Visit Provider Surgery | DX: K40.90 Unilateral inguinal hernia, without obstruction or gangrene, not specified as recurrent (principal) | CPT/HCPCS: 49505 ==

== ENCOUNTER 2024-12-05 12:31 | Outpatient (AMB) | payer MEDICAID, SELFPAY ==
--- NOTE | 2024-12-05 12:43 | MHC.OFFVIS ---
Vital Signs 12/05/24 12:48 Weight 279 lb BP 137/75 Blood Pressure Location Rt brachial Position Sitting Pulse 67 Intake Visit Reasons: S/P LIH w/mesh Intake Note: Patient here s/p Repair of left inguinal hernia with mesh. Reports incision healing well. Patient c/o: steri strips still in place. No longer taking rx pain meds. Surgery: 11-22-2024 Carrier Blower Required: No Accompanied by: Self / Same As Patient Allergies No Known Allergies [No Known Allergies*] Allergy (Verified 12/05/24 12:48) HPI HPI S/P LIH w/mesh: Details: He underwent repair of a left inguinal hernia with mesh last 11/22/2024. He tolerated the procedure well. He currently denies significant complaints. He has good pain control. PFSH Surgical History Hx of cholecystectomy Family History Mother Schizophrenia Father No problems noted. Son No problems noted. Son No problems noted. Daughter No problems noted. Social History Alcohol intake: never Patient Tobacco Use Status: Never used Tobacco e-Cigarette/Vaping Use: Never Used Review of Systems Const Denies chills and Denies fever(s) Card Denies chest pain, Denies dyspnea and Denies dyspnea on exertion Resp Denies cough, Denies dyspnea and Denies dyspnea on exertion GI Denies hematochezia and Denies change in bowel habits Denies hematuria and Denies difficulty urinating Musc Denies back pain and Denies limited range of motion Neuro Denies focal weakness and Denies convulsions Psych Denies depression and Denies mood swings Physical Exam Vital Signs: Last Vital Signs Pulse 67 12/05/24 12:48 BP 137/75 12/05/24 12:48 Const General: comfortable and no acute distress Nutritional Appearance: obese Resp Effort & Inspection: normal respiratory effort GI Other: Left inguinal hernia repair site is well healed, not infected, repair intact Palpation (GI): Soft to palpation Assessment & Plan Assessment & Plan (1) Left inguinal hernia: Code(s): K40.90 - Unilateral inguinal hernia, without obstruction or gangrene, not specified as recurrent Category: Surgical Plan: Status post repair with mesh. He is doing very well postop. The repair site is intact. There was evidence of any recurrence I advised him to avoid lifting anything more than 20 lb for about 2 more weeks. He can otherwise follow up on a p.r.n. basis Coding Level of Care Code Global (56505) Diagnoses Left inguinal hernia K40.90
[2024-12-05 12:48] VITALS: BP 137/75; PULSE 67
--- OUTSIDE RECORDS SUMMARY | 2024-12-05 14:01 | XMS_ITS | Encounter Summary ---
Author Organization [employer] Address [address] [place] [address] Care Team Providers Care Accounts Collector Name Role Phone Daphne Villa MD Primary Care Provider [phone] Encounter Details Date Type Department Care Team (Late st Contact Info) Description 11/22/2024 Orders Only [facility] [address], [place] [id number] Sunny Pacheco MD [address] [place] [address] Class 2 obesity due to excess calories [...] housing situation today? I have love taylor 11/09/[address] you li ve. Do you have problems with any of the following? None of the above 11/09/2024 Food Insecurity Answer Date Recorded Within the past 12 months, y ou worried that your food would run out before you got money to buy more: Sometimes True 2024 Within the past 12 months,th e food you bought just didn't last and you didn't have enough money to get more: Sometimes True 11/09/2024 Transportation Answer Date Recorded In the past 12 months, has l ack of transportation kept you from medical appts, meetings, work or from getting things needed for daily living? No 11/09/2024 Utilities Answer Date Recorded In the past 12 months, has t he electric, gas, oil or water company threatened to shut off services in your home? No 11/09/2024 Depression Answer Date Recorded Patient Health Questionnaire-2 Score 5 07/30/2024 Internet Access Answer Date Recorded Internet Access Q1 Yes 11/09/2024 Internet Access Q2 Not on file 11/09/2024 Sex and Gender Information Value Date Recorded Sex Assigned at Male 04/26/2022 10:22 AM EDT Legal Sex Male 10:22 AM EDT Gender Identity Male 04/26/2022 10:22 AM EDT Sexual Orientation Choose not to disclose 2021 10:22 AM EDT documented as of this encounter Plan of Treatment Upcoming Encounters Date Type Department Care Team (Late st Contact Info) Description 01/07/2025 11:30 AM EDT Office Visit [facility] [address] [place] [address] Daphne Villa MD [address] [place] [address] documented as of this encounter Visit Diagnoses Diagnosis Class 2 obesity due to excess calories without serious comorbidity with body mass index (BMI) of 38.0 to 38.9 in adult documented in this encounter Additional Health Concerns Assessment Noted Time PHQ-9 Depression Total Score: 21 025 1:25 PM EST documented as of this encounter Care Teams Accounts Collector Relationship Specialty Start Date End Date Daphne Villa MD [address] [place] [address] PCP - General Family Medicine 01/28/22 documented as of this encounter
== END 2024-12-05 13:32 | disposition home or self-care (01) ==
LOC: HO.HGS 12:32
PROVIDERS: Visit Provider Surgery
DX: K40.90 Unilateral inguinal hernia, without obstruction or gangrene, not specified as recurrent (principal)
CPT/HCPCS: 99024

== ENCOUNTER → 2024-12-05 12:31 | Outpatient (BNVA) | payer MEDICAID, SELFPAY | PROVIDERS: Visit Provider Surgery | DX: K40.90 Unilateral inguinal hernia, without obstruction or gangrene, not specified as recurrent (principal) | CPT/HCPCS: 99212 ==